=== PATIENT | female | born 1970 | race Caucasian/White ===

== ENCOUNTER 2021-06-08 08:04 | Outpatient (REF) | payer BC, SELFPAY ==
[2021-06-08 11:35] LABS: Appearance Urine HAZY; Color Urine YELLOW; Glucose Urine UA NEG (NEG); Leukocyte Esterase Urine 3+ (NEG); Nitrite Urine NEG (NEG); Urine Blood NEG (NEG); Urine Ketones NEG (NEG); Urine Protein NEG (NEG-TRACE)
[2021-06-08 12:04] LABS: Hematocrit 42.9 % (37.0-47.0); Hemoglobin 14.1 g/dl (12.0-16.0); Mean Corpuscular HGB Conc 32.9 g/dl (31.0-35.0); Mean Corpuscular Volume 91.3 fL (80.0-98.0); Mean Platelet Volume 10.4 fL (9.4-12.3); Platelet Count 204 X10*3/uL (160-400); Red Cell Distribution Width 12.7 % (11.0-16.0); White Blood Count 5.7 X10*3/uL (4.8-10.8)
[2021-06-08 12:11] LABS: Bacteria Urine 3+ /LPF; RBC Urine 0 /HPF (0); Squamous Epithelial Cell Urine 4+ /LPF
[2021-06-08 12:31] LABS: TSH reflex Free T4 2.31 uIU/mL (0.32-4.0); Vitamin D 25-OH Total 38.3 ng/mL (>30)
[2021-06-08 12:34] LABS: Alanine Aminotransferase 28 U/L (0-31); Albumin Level 4.1 g/dL (3.5-5.0); Alkaline Phosphatase 121 U/L (39-117); Anion Gap 14 (12-20); Aspartate Amino Transferase 21 U/L (5-31); Bilirubin Total 0.4 mg/dL (0.0-1.0); Blood Urea Nitrogen 10 mg/dL (9-16); Calcium 9.1 mg/dL (8.4-10.2); Carbon Dioxide 25 mmol/L (22-29); Chloride 106 mmol/L (96-108); Cholesterol 167 mg/dL; Estimated Glomerular Filt Rate > 60; Glucose Fasting 82 mg/dL (60-99); HDL Cholesterol 82 mg/dL; LDL Cholesterol Calculated 74 mg/dl; Potassium 4.6 mmol/L (3.3-5.1); Sodium 140 mmol/L (135-145); Total Protein 6.6 g/dL (6.5-8.0); Triglycerides 57 mg/dL
== END 2021-06-08 08:05 | disposition home or self-care (01) ==
LOC: HO.HMGCLDS 08:04
PROVIDERS: PCP Internal Medicine; Visit Provider Internal Medicine
DX: Z00.00 Encounter for general adult medical examination without abnormal findings (principal)
CPT/HCPCS: 36415; 80053; 80061; 81001; 82306; 84443; 85027

== ENCOUNTER → 2021-08-03 12:49 | Outpatient (REF) | payer BC, SELFPAY ==
--- NOTE | 2021-08-03 12:53 | CA_ITS ---
Transthoracic Echocardiogram Patient (Last, First, Middle): Irma Hobbs A Gender: Female Date of : 1970 Age: 51 Procedure Date: 08/03/2021 Procedure Type: Transthoracic Echocardiogram Location: OP Height: 165.1 cm Weight: 74.84 kg BSA: 1.82 m2 Heart Rate: bpm BP: 130 / 90 mmHg Upscale Security Officer: Referring MD: Brianne Cordoba MD Resource Protection Specialist: Blue Warren MD Symptoms: R01.1 - Cardiac murmur, unspecified Study Quality: Fair ECG Rhythm: Sinus Conclusions: - Essentially normal study with some fibrocalcific aortic valve changes noted Findings Left Ventricle Normal left ventricular size, thickness, and systolic function. The visually estimated ejection fraction is between 60-65%. Spectral Doppler is indicative of a normal filling pattern. Right Ventricle Normal right ventricular cavity size and systolic function. Atria Both atria are normal in size. There is no evidence of interatrial shunt. Aortic Valve The aortic valve was not well visualized. There is mild calcification of the aortic valve. There is no aortic valve stenosis. There is no aortic valve regurgitation. Mitral Valve Normal mitral valve structure and function. There is no mitral valve regurgitation. There is no mitral valve stenosis. Pulmonic Valve The pulmonic valve is likely normal. There is trace pulmonic valve regurgitation. Tricuspid Valve Normal tricuspid valve structure. There is trace tricuspid valve regurgitation. The right ventricular systolic pressure is normal. The right ventricular systolic pressure is 29 mmHg. Normal right atrial pressure. There is no evidence of pulmonary hypertension. Great Vessels All visible segments of the aorta are normal in size. The pulmonary artery was not well visualized. Venous The inferior vena cava is normal in size and collapses greater than 50% with inspiration. Pericardium/Pleural There is no evidence of pericardial effusion. Prior Study Comparison No prior study available for comparison. Measurements 2D Linear Measurements IVSd: 0.91 0.6-0.9/0.6-1.0 cm LVIDd: 4.09 3.9-5.3/4.2-5.9 cm LVIDd Index: 2.25 2.4-3.2/2.2-3.1 cm/m2 LVIDs: 2.65 2.0-3.6 cm LVPWd: 0.84 0.7-1.1 cm Ao Root: 3.10 2.1-3.5 cm LA Diam: 3.30 2.7-3.8/3.0-4.0 cm LAIDs Index: 1.81 1.5-2.3 cm/m2 LV Mass: 135.99 67-162/88-224 g LV Mass Index: 74.72 43-95/49-115 g/m2 LVOT Diam: 1.90 3.0+(-)1.3 cm 2D Systolic Function EF 4C: 61.80 >55% EF 2C: 65.40 >55% EF BiP: 62.60 >55% Mitral Valve E'Lateral: 12.60 E'Medial: 9.36 Aortic Valve AoV Pk Carlos: 1.22 AoV Mn Carlos: 0.90 AoV VTI: 0.30 AoV Pk Grad: 6.00 Aov Mn Grad: 4.00 PRATIBHA Cont.VTI: 2.07 LVOT LVOT Pk Carlos: 0.94 LVOT Mn Carlos: 0.67 LVOT VTI: 0.22 LVOT Pk Grad: 4.00 LVOT Mn Grad: 2.00 LVOT Diam: 1.90 LVOT Area: 2.84 Diastolic Function E'Medial: 9.36 E' Laterial: 12.60 Right Ventricle TAPSE (mm): 25.00 TVS' Carlos: 10.00 Tricuspid Valve TR Pk Carlos: 2.54 TR Pk Grad: 26.00 RA Press: 3.00 RVSP: 29.00 Great Vessels Aorta Ao Root-2D: 3.10 2.0-3.7 cm Ao Asc: 3.00 2.1-3.4 cm Ao Arch: 2.60 Updated in Other Vendor System with Status of Final Blue Warren MD electronically signed on 08/04/2021 12:19:56 PM with status of Final
== END ==
LOC: HO.CARD 12:49
PROVIDERS: PCP Internal Medicine; Visit Provider Internal Medicine
DX: R01.1 Cardiac murmur, unspecified (principal)
CPT/HCPCS: 93306

== ENCOUNTER 2022-05-27 06:58 | Outpatient (REF) | payer BC, SELFPAY ==
[2022-05-27 11:37] LABS: Hematocrit 43.7 % (37.0-47.0); Hemoglobin 14.3 g/dl (12.0-16.0); Mean Corpuscular HGB Conc 32.7 g/dl (31.0-35.0); Mean Corpuscular Volume 91.6 fL (80.0-98.0); Mean Platelet Volume 10.1 fL (9.4-12.3); Platelet Count 208 X10*3/uL (160-400); Red Blood Count 4.77 X10*6/uL (4.20-5.50); Red Cell Distribution Width 12.7 % (11.0-16.0); White Blood Count 4.4 X10*3/uL (4.8-10.8)
[2022-05-27 11:53] LABS: Appearance Urine Clear; Color Urine Yellow; Glucose Urine UA Negative (Negative); Leukocyte Esterase Urine Moderate (2+) (Negative); Nitrite Urine Negative (Negative); Specific Gravity - Urine 1.015 (1.005-1.025); UMIC TRIGGER UA YES; Urine Blood Negative (Negative); Urine Ketones Negative (Negative); Urine Protein Negative (Neg-Trace)
[2022-05-27 12:04] LABS: Alanine Aminotransferase 23 U/L (0-31); Albumin Level 4.4 g/dL (3.5-5.0); Alkaline Phosphatase 133 U/L (39-117); Anion Gap 13 (12-20); Aspartate Amino Transferase 26 U/L (5-31); Bilirubin Total 0.6 mg/dL (0.0-1.0); Blood Urea Nitrogen 16 mg/dL (9-16); Calcium 9.3 mg/dL (8.4-10.2); Carbon Dioxide 26 mmol/L (22-29); Chloride 106 mmol/L (96-108); Cholesterol 208 mg/dL; Estimated Glomerular Filt Rate > 60; Glucose Fasting 81 mg/dL (60-99); HDL Cholesterol 89 mg/dL; LDL Cholesterol Calculated 112 mg/dl; Potassium 4.1 mmol/L (3.3-5.1); Sodium 141 mmol/L (135-145); Total Protein 6.9 g/dL (6.5-8.0); Triglycerides 38 mg/dL
[2022-05-27 12:08] LABS: TSH reflex Free T4 2.57 uIU/mL (0.32-4.0)
[2022-05-27 12:25] LABS: Bacteria Urine 1+ (None Seen); Hyaline Casts Urine 0-2 /LPF (0-2); RBC Urine 0-2 /HPF (0-2); WBC Urine 0-5 /HPF (0-5)
== END 2022-05-27 06:59 | disposition home or self-care (01) ==
LOC: HO.HMGCLDS 06:58
PROVIDERS: PCP Internal Medicine; Visit Provider Internal Medicine
DX: Z00.00 Encounter for general adult medical examination without abnormal findings (principal); E06.3 Autoimmune thyroiditis
CPT/HCPCS: 36415; 80053; 80061; 81001; 84443; 85027

== ENCOUNTER 2022-06-14 11:32 | Outpatient (REF) | payer BC, SELFPAY | END 2022-06-14 11:33 | disposition home or self-care (01) | LOC: HO.HMGCLDS 11:32 | PROVIDERS: PCP Internal Medicine; Visit Provider Internal Medicine | DX: R30.0 Dysuria (principal) | CPT/HCPCS: 87086 ==

== ENCOUNTER 2023-06-02 06:33 | Outpatient (REF) | payer BC, SELFPAY ==
[2023-06-02 11:22] LABS: MANUAL DIFF FLAG NO
[2023-06-02 11:28] LABS: Basophils Absolute Auto 0.1 X10*3/uL (0.0-0.2); Eosinophils Absolute Auto 0.3 X10*3/uL (0.0-0.4); Eosinophils Percent Auto 5.4 % (0-4); Imm Gran Abs Auto 0.02 X10*3/uL (0.00-0.03); Imm Gran Pct Auto 0.3 % (0.0-0.4); Lymphocytes Absolute Auto 2.4 X10*3/uL (1.2-4.9); Lymphocytes Percent Auto 40.1 % (20-40); Mean Corpuscular HGB Conc 32.6 g/dl (31.0-35.0); Mean Corpuscular Hemoglobin 29.5 pg (27.0-33.0); Mean Corpuscular Volume 90.7 fL (80.0-98.0); Mean Platelet Volume 10.4 fL (9.4-12.3); Monocytes Absolute Auto 0.5 X10*3/uL (0.1-1.2); Monocytes Percent Auto 8.2 % (2-11); Neutrophils Absolute Auto 2.7 x10*3/uL (2.0-8.3); Platelet Count 257 X10*3/uL (160-400); Red Blood Count 4.74 X10*6/uL (4.20-5.50); Red Cell Distribution Width 12.8 % (11.0-16.0); White Blood Count 6.1 X10*3/uL (4.8-10.8)
[2023-06-02 11:31] LABS: Appearance Urine Clear; Color Urine Yellow; Glucose Urine UA Negative (Negative); Leukocyte Esterase Urine Trace (Negative); Nitrite Urine Negative (Negative); PH 5.5 (5.0-9.0); UMIC TRIGGER UACC YES; Urine Blood Negative (Negative); Urine Ketones Negative (Negative); Urine Protein Negative (Neg-Trace)
[2023-06-02 11:36] LABS: Bacteria Urine None Seen (None Seen); Hyaline Casts Urine 0-2 /LPF (0-2); RBC Urine 0-2 /HPF (0-2); Squamous Epithelial Cell Urine 0-2 /HPF (0-2); WBC Urine 0-5 /HPF (0-5)
[2023-06-02 12:05] LABS: Alanine Aminotransferase 20 U/L (0-31); Albumin Level 4.1 g/dL (3.5-5.0); Alkaline Phosphatase 117 U/L (39-117); Anion Gap 11 (12-20); Aspartate Amino Transferase 19 U/L (5-31); Bilirubin Total 0.3 mg/dL (0.0-1.0); Blood Urea Nitrogen 17 mg/dL (9-16); Carbon Dioxide 25 mmol/L (22-29); Chloride 109 mmol/L (96-108); Cholesterol 175 mg/dL (<200); Estimated Glomerular Filt Rate > 60; Glucose Fasting 90 mg/dL (60-99); HDL Cholesterol 67 mg/dL (>40); LDL Cholesterol Calculated 96 mg/dL (<100); Sodium 141 mmol/L (135-145); Total Protein 6.7 g/dL (6.5-8.0); Triglycerides 64 mg/dL (<150)
[2023-06-02 12:07] LABS: TSH reflex Free T4 3.66 uIU/mL (0.32-4.0)
== END 2023-06-02 06:34 | disposition home or self-care (01) ==
LOC: HO.HMGCLDS 06:33
PROVIDERS: PCP Internal Medicine; Visit Provider Internal Medicine
DX: Z00.00 Encounter for general adult medical examination without abnormal findings (principal)
CPT/HCPCS: 36415; 80053; 80061; 81001; 84443; 85025

== ENCOUNTER 2023-06-15 11:23 | Outpatient (AMB) | payer BC, SELFPAY ==
[2023-06-15 11:38] VITALS: BP 116/70; PULSE 74; O2SAT 98; BMI 28.1
--- NOTE | 2023-06-15 11:38 | MHC.PC.OV ---
Vital Signs 06/15/23 11:38 Height 5 ft 5.5 in Weight 171 lb 6 oz BMI 28.1 BP 116/70 Blood Pressure Location Rt brachial Position Sitting Pulse 74 Pulse Source Pulse Oximeter Pulse Oximetry (%) 98 Oxygen Delivery Method Room Air Intake Visit Reasons: annual PE Intake Note: pt is here for annual physical exam Supervisor Of Officials Required: No Accompanied by: Self / Same As Patient Allergies No Known Allergies Allergy (Verified 06/15/23 11:38) Medication List - Last Reconciled 06/15/23 by Brianne Cordoba MD No Known Home Meds Tobacco use date assessed: 06/15/23 Dental Screening Dental Screen Date: 06/15/23 Did you have a dental visit in the last 12 months?: Yes Did you have a dental problem in the last 6 months where you did not have access to dental care?: No Was dental information given to patient?: Patient has dentist HPI annual PE HPI Details Pt presents for PE. [facility] Medical History (Updated 06/15/23 @ 12:14 by Brianne Cordoba MD) Heart murmur Normal breast exam Normal pelvic exam Annual physical exam Ta's disease Surgical History H/O colonoscopy Family History Father Heart disease Bone cancer Prostate cancer HTN (hypertension) Mother HTN (hypertension) Diabetes Social History (Updated 06/15/23 @ 12:39 by Brianne Cordoba MD) Household Members Other:: lives with partner, 2 sons(17 and 21) 06/22 Housing: House Patient Tobacco Use Status: Never used Tobacco e-Cigarette/Vaping Use: Never Used Second Hand Smoke Exposure: No Current occupational status: employed Cognitive needs: No Hearing needs: No Vision needs: Yes Questionnaire PHQ-9 Over the last 2 weeks, how often have you been bothered by any of the following problems? 1. Little interest or pleasure in doing things: not at all 2. Feeling down, depressed, or hopeless: not at all 3. Trouble falling or staying asleep, or sleeping too much: not at all 4. Feeling tired or having little energy: not at all 5. Poor appetite or overeating: not at all 6. Feeling bad about yourself - or that you are a failure or have let yourself or your family down: not at all 7. Trouble concentrating on things, such as reading the newspaper or watching television: not at all 8. Moving or speaking so slowly that other people could have noticed. Or the opposite - being so fidgety or restless that you have been moving around a lot more than usual: not at all 9. Thoughts that you would be better off or of hurting yourself in some way: not at all Total score: 0 Depression Screening Interpretation: Negative Depression Screening Done: Yes 13827 - PHQ-9 Billing: Yes Source: Developed by Drs. Milan Hawkins, Melissa Mcallister, Don Lala and colleagues, with an educational su from [employer]. Thrive Questionnaire Date Thrive assessed: 06/15/23 I am a: Patient What is your living situation today?: I have a steady place to live Within the past 12 months, did the food you bought not last and you didn't have the money to get more?: Never true Within the past 12 months, did you worry whether your food would run out before you got money to buy more?: Never true Do you have trouble paying for medicines?: No Do you have trouble getting transportation to medical appointments?: No Do you have trouble paying your heating and electricity bill?: No Do you have trouble taking care of your child, family member or friend?: No Do you have trouble with day-to-day activities such as bathing, preparing meals, shopping, managing finances, etc.?: No Are you currently unemployed and looking for a job?: No Are you interested in more education?: No Please select the resources that you would like help with: None Currently or been in a relationship where the following occur: no concerns reported ANTONIETA-7 AMB Questionnaire ANTONIETA-7 Date ANTONIETA - 7 assessed: 06/15/23 Feeling nervous, anxious, or on edge: 0 = Not at all Not being able to stop or control worryin = Not at all Worrying too much about different things: 0 = Not at all Trouble relaxin = Not at all Being so restless that it is hard to sit still: 0 = Not at all Becoming easily annoyed or irritable: 0 = Not at all Feeling afraid as if something awful might happen: 0 = Not at all Total ANTONIETA-7 score (0-4 normal; 5-9 mild; 10-14 moderate; 15-21 severe): 0 Source: Developed by Drs. Milan Hawkins, Melissa Mcallister, Don Lala and colleagues, with an educational su from [employer]. ANTONIETA-7 Assessment Billing ANTONIETA-7 Assessment Tool: ANTONIETA-7 Assessment 18129 Review of Systems Const All systems reviewed & are unremarkable except as noted in HPI and below Reports no additional complaints Eyes Reports no additional complaints ENT Reports no additional complaints Card Reports no additional complaints Resp Reports no additional complaints GI Reports no additional complaints Reports no additional complaints Physical exam (Primary Care) Vital Signs: Last Vital Signs Pulse 74 06/15/23 11:38 BP 116/70 06/15/23 11:38 Pulse Ox 98 06/15/23 11:38 Oxygen Delivery Method Room Air 06/15/23 11:38 BMI result Body Mass Index 28.1 Tobacco/Smoking Status: Tobacco use Status Tobacco use date assessed 06/15/23 06/15/23 11:39 Patient Tobacco Use Status Never used Tobacco 06/15/23 12:39 e-Cigarette/Vaping Use Never Used 06/15/23 12:39 PHQ-9: PHQ-9 Score PHQ-9: Total score 0 06/15/23 12:14 Depression Screening Interpretation: Negative Thrive Assessment: Date of Thrive Assessment Date Thrive assessed 06/15/23 06/15/23 11:50 Currently or been in a relationship where the following occur: no concerns reported Const General: no acute distress HENMT Ears: hearing grossly normal bilaterally Face and sinus: Yes normal facial exam Mouth: Normal oral and palatal mucosa present Eyes General: appearance normal, both eyes and all related structures Neck Neck: Yes no lymphadenopathy and Yes supple Resp Effort & Inspection: normal respiratory effort Auscultation: clear to auscultation bilaterally Cardio Rhythm: regular rhythm Heart sounds: S1 normal heart sound present and S2 normal heart sound present GI Inspection: Yes normal to inspection Palpation (GI): Soft to palpation Percussion: Yes normal to percussion Auscultation: normal bowel sounds Assessment and Plan Assessment & Plan (1) Normal pelvic exam: Comment: caterer helper 2021, menopause 2022 Code(s): Z01.419 - Encounter for gynecological examination (general) (routine) without abnormal findings (2) H/O colonoscopy: Comment: normal 01/2019 Code(s): Z98.890 - Other specified postprocedural states (3) Annual physical exam: Code(s): Z00.00 - Encounter for general adult medical examination without abnormal findings Plan: Well-balanced diet regular physical activity discussed with the patient . return in 1 year for physical (4) Hx of mammogram: Code(s): Z92.89 - Personal history of other medical treatment Orders: Orders Complete Blood Count Auto Diff 365 Days Z00.00 - Encounter for general adult medical examination without abnormal findings Lipid Panel 365 Days Z00.00 - Encounter for general adult medical examination without abnormal findings Comprehensive [place]. Panel Fast 365 Days Z00.00 - Encounter for general adult medical examination without abnormal findings Vitamin D 25-OH Total 365 Days Z00.00 - Encounter for general adult medical examination without abnormal findings Coding Level of Care Code Est Pt Prev Care 40-64y(22440) Diagnoses Normal pelvic exam Z01.419 H/O colonoscopy Z98.890 Annual physical exam Z00.00 Hx of mammogram Z92.89 Additional Codes ANTONIETA-7 Assessment Billing - ANTONIETA-7 Assessment Tool: ANTONIETA-7 Assessment 15469 ([id number])
== END 2023-06-15 12:40 | disposition home or self-care (01) ==
PROVIDERS: Visit Provider Internal Medicine
DX: Z01.419 Encounter for gynecological examination (general) (routine) without abnormal findings (principal); Z98.890 Other specified postprocedural states; Z00.00 Encounter for general adult medical examination without abnormal findings; Z92.89 Personal history of other medical treatment
CPT/HCPCS: 99396

== ENCOUNTER 2024-07-05 07:07 | Outpatient (REF) | payer BC, SELFPAY ==
[2024-07-05 10:02] LABS: MANUAL DIFF FLAG NO
[2024-07-05 10:03] LABS: Basophils Percent Auto 0.7 % (0-2); Eosinophils Absolute Auto 0.2 X10*3/uL (0.0-0.4); Eosinophils Percent Auto 3.9 % (0-4); Hematocrit 43.7 % (37.0-47.0); Hemoglobin 14.6 g/dl (12.0-16.0); Imm Gran Abs Auto 0.03 X10*3/uL (0.00-0.03); Imm Gran Pct Auto 0.5 % (0.0-0.4); Lymphocytes Absolute Auto 2.1 X10*3/uL (1.2-4.9); Lymphocytes Percent Auto 37.9 % (20-40); Mean Corpuscular HGB Conc 33.4 g/dl (31.0-35.0); Mean Corpuscular Hemoglobin 29.7 pg (27.0-33.0); Mean Platelet Volume 10.1 fL (9.4-12.3); Monocytes Absolute Auto 0.5 X10*3/uL (0.1-1.2); Monocytes Percent Auto 8.7 % (2-11); Neutrophils Absolute Auto 2.7 x10*3/uL (2.0-8.3); Neutrophils Percent Auto 48.3 % (45-73); Platelet Count 219 X10*3/uL (160-400); Red Blood Count 4.91 X10*6/uL (4.20-5.50); Red Cell Distribution Width 12.9 % (11.0-16.0); White Blood Count 5.6 X10*3/uL (4.8-10.8)
[2024-07-05 10:51] LABS: Alanine Aminotransferase 34 U/L (0-31); Albumin Level 4.5 g/dL (3.5-5.0); Alkaline Phosphatase 160 U/L (39-117); Anion Gap 10 (12-20); Aspartate Amino Transferase 27 U/L (5-31); Bilirubin Total 0.4 mg/dL (0.0-1.0); Blood Urea Nitrogen 14 mg/dL (9-16); Carbon Dioxide 29 mmol/L (22-29); Chloride 107 mmol/L (96-108); Cholesterol 220 mg/dL (<200); Estimated Glomerular Filt Rate > 60; Glucose Fasting 84 mg/dL (60-99); HDL Cholesterol 92 mg/dL (>40); LDL Cholesterol Calculated 115 mg/dL (<100); Potassium 3.8 mmol/L (3.3-5.1); Sodium 142 mmol/L (135-145); Total Protein 7.3 g/dL (6.5-8.0); Triglycerides 67 mg/dL (<150)
[2024-07-05 11:07] LABS: Vitamin D 25-OH Total 103.9 ng/mL (>30)
--- OUTSIDE RECORDS SUMMARY | 2024-07-10 04:47 | XMS_ITS | Data Portability ---
Author Organization [facility] Address [address] [place] [phone] Assessment Encounter Date Assessment Date Assessment LastModified by Organization Details LastModified Time 05/29/2018 05/29/2018 Had flu vaccine 04/2018 [email or web address] Not available 05/29/2018 15:37:50 Plan of Treatment Reminders Order Date Submit Date Provider Last Modified By Organization Details Last Modified Time Details Appointments None recorded. Lab TSH + free T4, serum 2017 tbalicki Not available 8 15:39:41 hepatitis C panel, serum 2017 [email or web address] Not available 8 15:39:41 CBC 2017 MARICRUZ Not available 8 08:04:16 CMP, serum or plasma 2017 MARICRUZ Not available 8 08:04:16 Referral colonoscopy referral 2017 MARICRUZ Serrano MD, [address] [place] [address] Dr, [address], [address], 8 12:55:58 Procedures None recorded. Surgeries None recorded. Imaging None recorded. Medication Orders None recorded. Patient TargetsNo targets recorded. Patient Instructions Encounter Date Encounter Id Patient Instructions Last Modified By Organization Details Last Modified Time 05/29/2018 [id number] Continue healthy diet/ exercise [email or web address] Not available 05/29/2018 15:38:02 Shingrix vaccine info provided [email or web address] Not available 05/29/2018 15:38:14 Reason for Referral Colonoscopy Referral for Scr eening procedure Referring Physician: Jane Hatfield, Internal Medicine, Encounter Date: 05/29/2018 Results Created Date Observation Date Name Description Value Unit Range Abnormal Flag Note LastModifiedBy Organization Detail LastModifiedTime Result Notes None recorded. Problems Name Problem SNOMED Code Status Onset Date Resolution Date Notes Provider Name and Address Organization Details Recorded Time Ta thyroiditis 22166181 Active 018 Jane Hatfield NP, [address], [place], [phone], [facility] 8 15:23:23 Problem Notes None recorded. Procedures Surgical History Date Name Laterality Status Provider Name and Address Organization Details Recorded Time 04/30/20 18 Date of Last Pap Smear completed Jane Hatfield NP, [address], [place], [phone], [facility] 05/29/2018 15:07:04 04/30/20 18 Most Recent Mammogram completed Jane Hatfield NP [address], [place], [phone], [facility] 05/29/2018 15:08:23 Incision of eardrum completed Jane Hatfield NP [address], [place], [phone], [facility] 05/29/2018 15:04:56 Tonsillectomy completed Jane Hatfield NP [address] A, [place], [address], [facility] 05/29/2018 15:05:05 Suspension of uterus completed Jane Hatfield NP [address] A, [place], [address], [facility] 05/29/2018 15:06:20 Rhinoplasty completed Jane Hatfield NP, [address] A, [place], [address], [facility] 05/29/2018 15:06:38 Eye Surgery completed Jane Hatfield NP [address], [place], [address], [facility] 05/29/2018 15:15:36 Imaging Results None recorded. Procedure Notes None recorded. Medical Equipment None Reported. Allergies No known drug allergies Medications Name Sig Start Date Stop Date Status Note LastModified by Organization Details LastModified Time intrauterine device (IUD) Take by intrauterin e route. active Not Available Not Available No t Available Vitals Date Recorded Body height Body mass index (BMI) Body weight Heart rate Oxygen saturation Oxygen saturation in Arterial blood by Pulse oximetry Systolic blood pressure Diastolic blood pressure Provider Name and Address Organization Details Last Updated DateTime 8 164.47 cm 26 kg/m2 66094.5 4 g 73 /min 97 % 97 % 100 mm[Hg] 68 mm[Hg] [facility] 8 14:58:09 Social History Question Answer Notes LastModified by Organizat ion Details LastModified Time Tobacco Smoking Status Never [facility]oker [facility] 05/29/2018 14:57:15 What Was The Date Of Your Most Recent Tobacco Screening? 05/29/2018 Information n ot available 02/21/2019 Sex: Unknown Functional Status None recorded. Mental Status None recorded. Family History Relationship Description Onset Age of this Age Resolved Age Notes LastModified by Organization Details LastModified Time Father Coronary arterioscler osis cva, htn, eskawski Not available 05/29/2018 15:03:27 Mother Diabetes mellitus 76 eskawski Not available 2017 15:03:50 Sister Malignant tumor of breast 54 hypoth yroid [email or web address] Not available 05/29/2018 15:04:27 Medical History Condition Response Coronary Artery Disease N Gout N Kidney Stones N Blood Diseases N Hyperthyroidism N Breast Cancer N Blood Transfusion N COPD N Depression N Hypothyroidism N Lung Disease N Defects or Inherited Disease N Difficulty Swallowing N Anesthesia Complications N Anxiety Disorder N Meniere's disease N Muscle, Joint, or Bone Problems N Obesity N Vision or Eye Problems Y Arthritis N Polyps N Mental Disorder N Cancer N Stroke N Varicosities N Endometriosis N Bladder or Kidney Problems N High Cholesterol N Liver Disease N Fibromyalgia N Headaches N Kidney Disease N Allergies/Hayfever Y Heart Problems N Hospitalizations N Thyroid Problems Y GI Problems N Skin Problems N Eating Disorder N Anemia N Constipation N Mental Illness N Ovarian Cancer N Diabetes N Seizures/Epilepsy N Congestive Heart Failure (CHF) N Eczema N Diverticulitis N Abuse/Domestic Violence N Asthma N Reflux/GERD N Hepatitis N Heart Disease N Pulmonary Embolism N Pre-Eclampsia Y Hypertension N Chronic Ear Infections Y Osteoporosis N Chicken Pox Y Autism Spectrum Disorder (ASD) N Gynecological History Statement/Question Response Abnormal Pap N Date of LMP 05/04/2018 On BCP's at Conception? N STIs/STDs Y HPV Vaccine N Duration of Flow (days) 2 Age at Menarche 11 Current Control Method IUD Most Recent Mammogram 04/30/2018 Age at First Child 32 Sexually Active? Y Menses Monthly Y Date of Last Pap Smear 04/30/2018 Sexual Problems? Y LMP Approximate Obstetrics History GPAL:G 3 P 2 0 1 0 Type Value Full Term 2 Spontaneous 1 Total 3 Immunizations Vaccine Type Date Status Note Provider Nam e and Address Organization Details Recorded Time Influenza, split virus, quadrivalent, preservative 8 completed Jane Hatfield NP, [address] [place] [address], [phone] 05/29/2018 15:39:11 Past Encounters Encounter ID Performer Location Encounter Start Date Encounter Closed Date Diagnosis/Indication Diagnosis SNOMED-CT Code Diagnosis ICD10 Code [id number] Jane Hatfield NP, [facility] [address] [place] [address] [place] [phone] 05/29/2018 14:46:53 05/30/2018 12:25:10 Screening procedure 89481440 Z13.9 Ta thyroiditis 21 431747 E06.3 Health Concerns Section Related Observation LastModified by Organization Detai ls LastModified Time None Recorded Concern Status LastModified by Organization Details LastModified Time None Recorded Advance Directives Directive None Recorded Payers Encounter Date Sequence Insurance Name Policy Number Policy Diego Covered Member ID Diego Member ID Guarantor Name 05/29/2018 1 [facility] [id number] Irma Hobbs [id number] Irma Hobbs Notes Date Note Type Note Provider Name and Address Organization Details Recorded Time 05/29/2018 text/html Annual WellnessReported bypatient.Diet and Nutrition:healthy diet; discussed maintaining calcium balance Fracture Risk:no history of fractures; no recent explained fracture; no sudden unexplained fractures; no previous musculoskeletal injuries Physical Activity:exercises on a regular basis; good physical condition; cardio and weights/ [employer] 3-4 X week Additional Lifestyle Factors:no tobacco use; drinks alcohol (mild-moderate) Depression Risk:never feels sad, empty, or tearful; no loss of interest in activities; no significant changes in weight; no sleep disturbances or insomnia; no agitation; no loss of energy; no feelings of worthlessness or guilt; no thoughts of suicide; no history of depression; no history of mood disorders Hearing:no loss of hearing Vision:worse near; cheaters help Jane Hatfield NP, [address] [place] [address], [phone], [facility] 05/29/2018 15:39:30 OBGyn Episode No OBEpisode recorded.
== END 2024-07-05 07:08 | disposition home or self-care (01) ==
LOC: HO.HMGCLDS 07:07
PROVIDERS: PCP Internal Medicine; Visit Provider Internal Medicine
DX: Z00.00 Encounter for general adult medical examination without abnormal findings (principal)
CPT/HCPCS: 36415; 80053; 80061; 82306; 85025

== ENCOUNTER 2024-07-15 11:25 | Outpatient (AMB) | payer BC, SELFPAY ==
--- OUTSIDE RECORDS SUMMARY | 2024-07-15 11:27 | XMS_ITS | Data Portability ---
Author Organization [facility] Address [address] [place] [address] Assessment Encounter Date Assessment Date Assessment LastModified by Organization Details LastModified Time 05/29/2018 05/29/2018 Had flu vaccine 04/2018 kecia Not available 05/29/2018 15:37:50 Plan of Treatment [...] Referral colonoscopy referral 2017 MARICRUZ Serrano MD, [address] [place] [address] Dr, [address], [address], 8 12:55:58 Procedures None recorded. Surgeries None recorded. Imaging None recorded. Medication Orders None recorded. Patient TargetsNo targets recorded. Patient Instructions Encounter Date Encounter Id Patient Instructions Last Modified By Organization Details Last Modified Time 05/29/2018 [id number] Continue healthy diet/ exercise esclaudio Not available 05/29/2018 15:38:02 Shingrix vaccine info provided kecia Not available 05/29/2018 15:38:14 Reason for Referral Colonoscopy Referral for Scr eening procedure Referring Physician: Jane Hatfield [facility], Encounter Date: 05/29/2018 Results Created Date Observation Date Name Description Value Unit Range Abnormal Flag Note LastModifiedBy Organization Detail LastModifiedTime Result Notes None recorded. Problems Name Problem SNOMED Code Status Onset Date Resolution Date Notes Provider Name and Address Organization Details Recorded Time Ta thyroiditis 65490463 Active 2017 Jane Hatfield NP, [address] [place] [address], [phone], [facility] [place] [facility] 8 15:23:23 Problem Notes None recorded. Procedures Surgical History Date Name Laterality Status Provider Name and Address Organization Details Recorded Time 018 Date of Last Pap Smear completed Jane Hatfield NP, [address] [place] [address], [phone], [facility] [place] [facility] 05/29/2018 15:07:04 018 Most Recent Mammogram completed Jane Hatfield NP, [address] [place] [address], [address], [facility] 05/29/2018 15:08:23 Incision of eardrum completed Jane Hatifeld NP, [address] [place] [address], [phone], [facility] [place] [facility] 05/29/2018 15:04:56 Tonsillectomy completed Jane koenig NP, [address] [place] [address], [address], [facility] [place] [facility] 05/29/2018 15:05:05 Suspension of uterus completed Jane Hatfield NP, S [address] [place] [address], [address], [facility] [place] [facility] 05/29/2018 15:06:20 Rhinoplasty completed Jane Lynn i, NP, [address] [place] [address], [address], [facility] [place] [facility] 05/29/2018 15:06:38 Eye Surgery completed Jane Lynn i, NP, [address] [place] [address], [address], [facility] [place] [facility] 05/29/2018 15:15:36 Imaging Results None recorded. [...] Updated DateTime 8 164.47 cm 26 kg/m2 17422.5 4 g 73 /min 97 % 97 % 100 mm[Hg] 68 mm[Hg] Re Mckeonisidra [facility] 8 14:58:09 Social History Question Answer Notes LastModified by Organizat ion Details LastModified Time Tobacco Smoking Status Never Smoker Re Payne quoc [facility] 05/29/2018 14:57:15 What Was The Date Of [...] Malignant tumor of breast 54 hypoth yroid [email or web address] Not available 05/29/2018 15:04:27 Medical History Condition Response Coronary Artery Disease N Gout N Kidney Stones N Blood Diseases N Hyperthyroidism N Blood Transfusion N Breast Cancer N COPD N Depression N Lung Disease N Hypothyroidism N Defects or Inherited Disease N Difficulty Swallowing N Anesthesia Complications N Meniere's disease N Anxiety Disorder N Muscle, Joint, or Bone Problems N Obesity N Vision or Eye Problems Y Arthritis N Polyps N Mental Disorder N Cancer N Varicosities N Stroke N Endometriosis N Bladder or Kidney Problems N High Cholesterol N Liver Disease N Headaches N Fibromyalgia N Kidney Disease N Allergies/Hayfever Y Heart Problems N Hospitalizations N Thyroid Problems Y GI Problems N Eating Disorder N Skin Problems N Anemia N Constipation N Mental Illness N Diabetes N Ovarian Cancer N Seizures/Epilepsy N Congestive Heart Failure (CHF) N Eczema N Abuse/Domestic Violence N Diverticulitis N Asthma N Reflux/GERD N Hepatitis N Heart Disease N Pulmonary Embolism N Chronic Ear Infections Y Pre-Eclampsia Y Hypertension N Chicken Pox Y Autism Spectrum Disorder (ASD) N Osteoporosis N Gynecological History Statement/Question Response Abnormal Pap [...] preservative 8 completed Jane Hatfield NP, S [address] [place] [address], [phone] 05/29/2018 15:39:11 Past Encounters Encounter ID Performer Location Encounter Start Date Encounter Closed Date Diagnosis/Indication Diagnosis SNOMED-CT Code Diagnosis ICD10 Code [id number] Jane Hatfield NP, [facility] [address] [place], [place] [address] [address] 05/29/2018 14:46:53 05/30/2018 12:25:10 Screening procedure 51968748 Z13.9 Ta thyroiditis 21 669816 E06.3 Health Concerns Section Related Observation LastModified by Organization Detai ls LastModified Time None Recorded Concern Status LastModified by Organization Details LastModified Time None Recorded Advance Directives Directive None Recorded Payers Encounter Date Sequence Insurance Name Policy Number Policy Diego Covered Member ID Diego Member ID Guarantor Name 05/29/2018 1 [facility]: [facility] [place] [place] [id number] Irma Hobbs [id number] Irma Hobbs Notes Date Note Type Note Provider Name a nd Address Organization Details Recorded Time 8 text/html Annual WellnessReported bypatient.Diet and Nutrition:healthy diet; [...] near; cheaters help Jane Hatfield NP, [address] [place], [address], [facility] 05/29/2018 15:39:30 OBGyn Episode No OBEpisode recorded.
[2024-07-15 11:31] VITALS: BP 126/82; PULSE 71; O2SAT 97; BMI 29.3
--- NOTE | 2024-07-15 11:31 | MHC.PC.OV ---
Vital Signs 07/15/24 11:31 Height 5 ft 5.5 in Weight 179 lb BMI 29.3 BP 126/82 Blood Pressure Location Lt brachial Position Sitting Pulse 71 Pulse Source Pulse Oximeter Pulse Oximetry (%) 97 Oxygen Delivery Method Room Air Intake Visit Reasons: Annual PE Intake Note: Pt is here today for PE. Allergies No Known Allergies Allergy (Verified 07/15/24 11:34) Medication List - Last Reconciled 07/15/24 by Brianne Cordoba MD No Known Home Meds Tobacco use date assessed: 07/15/24 Dental Screening Dental Screen Date: 07/15/24 Did you have a dental visit in the last 12 months?: Yes Did you have a dental problem in the last 6 months where you did not have access to dental care?: No Was dental information given to patient?: Patient has dentist HPI Annual PE HPI Details Patient presents for physical [facility] Medical History (Updated 07/15/24 @ 11:53 by Brianne Cordoba MD) Heart murmur Normal breast exam Normal pelvic exam Annual physical exam Ta's disease Surgical History H/O colonoscopy Family History Father Heart disease Bone cancer Prostate cancer HTN (hypertension) Mother HTN (hypertension) Diabetes Social History Household Members Other:: lives with partner, 2 sons(17 and 21) 06/22 Housing: House Patient Tobacco Use Status: Never used Tobacco e-Cigarette/Vaping Use: Never Used Second Hand Smoke Exposure: No service: No Current occupational status: employed Cognitive needs: No Hearing needs: No Vision needs: Yes Questionnaire PHQ-9 Over the last 2 weeks, how often have you been bothered by any of the following problems? 1. Little interest or pleasure in doing things: not at all 2. Feeling down, depressed, or hopeless: not at all 3. Trouble falling or staying asleep, or sleeping too much: more than half the days 4. Feeling tired or having little energy: several days 5. Poor appetite or overeating: not at all 6. Feeling bad about yourself - or that you are a failure or have let yourself or your family down: not at all 7. Trouble concentrating on things, such as reading the newspaper or watching television: not at all 8. Moving or speaking so slowly that other people could have noticed. Or the opposite - being so fidgety or restless that you have been moving around a lot more than usual: not at all 9. Thoughts that you would be better off or of hurting yourself in some way: not at all Total score: 3 Depression Screening Interpretation: Negative Depression Screening Done: Yes 12091 - PHQ-9 Billing: Yes Source: Developed by Drs. Milan Hawkins, Melissa Mcallister, Don Lala and colleagues, with an educational su from [employer]. Thrive Questionnaire Date Thrive assessed: 07/15/24 I am a: Patient What is your living situation today?: I have a steady place to live Within the past 12 months, did the food you bought not last and you didn't have the money to get more?: Never true Within the past 12 months, did you worry whether your food would run out before you got money to buy more?: Never true Do you have trouble paying for medicines?: No Do you have trouble getting transportation to medical appointments?: No Do you have trouble paying your heating and electricity bill?: No Do you have trouble taking care of your child, family member or friend?: No Do you have trouble with day-to-day activities such as bathing, preparing meals, shopping, managing finances, etc.?: No Are you currently unemployed and looking for a job?: No Are you interested in more education?: No Please select the resources that you would like help with: None Currently or been in a relationship where the following occur: No concerns reported THRIVE Score: 0 AUDIT C Alcohol Use Questionnaire (AUDIT-C) 1. How often do you have a drink containing alcohol?: 2-4 times a month 2. How many drinks containing alcohol do you have on a typical day when you are drinking?: 1 or 2 3. How often do you have six or more drinks on one occasion?: Monthly Total Score: 4 ANTONIETA-7 AMB Questionnaire ANTONIETA-7 Date ANTONIETA - 7 assessed: 07/15/24 Feeling nervous, anxious, or on edge: 1 = Several days Not being able to stop or control worryin = Not at all Worrying too much about different things: 0 = Not at all Trouble relaxin = Not at all Being so restless that it is hard to sit still: 0 = Not at all Becoming easily annoyed or irritable: 1 = Several days Feeling afraid as if something awful might happen: 0 = Not at all Total ANTONIETA-7 score (0-4 normal; 5-9 mild; 10-14 moderate; 15-21 severe): 2 Source: Developed by Drs. Milan Hawkins, Melissa Mcallister, Don Lala and colleagues, with an educational su from [employer]. ANTONIETA-7 Assessment Billing ANTONIETA-7 Assessment Tool: ANTONIETA-7 Assessment 67681 Review of Systems Const All systems reviewed & are unremarkable except as noted in HPI and below Eyes Reports no additional complaints ENT Reports no additional complaints Card Reports no additional complaints Resp Reports no additional complaints GI Reports no additional complaints Reports no additional complaints Physical exam (Primary Care) Vital Signs: Last Vital Signs Pulse 71 07/15/24 11:31 BP 126/82 07/15/24 11:31 Pulse Ox 97 07/15/24 11:31 Oxygen Delivery Method Room Air 07/15/24 11:31 BMI result Body Mass Index 29.3 Tobacco/Smoking Status: Tobacco use Status Tobacco use date assessed 07/15/24 07/15/24 11:35 Patient Tobacco Use Status Never used Tobacco 07/15/24 11:35 e-Cigarette/Vaping Use Never Used 07/15/24 11:33 PHQ-9: PHQ-9 Score PHQ-9: Total score 3 07/15/24 11:35 Depression Screening Interpretation: Negative Thrive Assessment: Date of Thrive Assessment Date Thrive assessed 07/15/24 07/15/24 11:35 Currently or been in a relationship where the following occur: No concerns reported Const General: no acute distress HENMT Head: Yes normal to inspection Ears: hearing grossly normal bilaterally Eyes General: appearance normal, both eyes and all related structures Neck Neck: Yes no lymphadenopathy and Yes supple Resp Effort & Inspection: normal respiratory effort Auscultation: clear to auscultation bilaterally Cardio Rhythm: regular rhythm Heart sounds: S1 normal heart sound present and S2 normal heart sound present GI Inspection: Yes normal to inspection Palpation (GI): Soft to palpation Percussion: Yes normal to percussion Auscultation: normal bowel sounds Coding Level of Care Code Est Pt Prev Care 40-64y(14277) Diagnoses Elevated LFTs Annual physical exam Z00. Additional Codes ANTONIETA-7 Assessment Billing - ANTONIETA-7 Assessment Tool: ANTONIETA-7 Assessment 52351 ([id number]) PHQ-9 - 25462 - PHQ-9 Billing: Yes ([id number]) Assessment & Plan Assessment & Plan (1) Elevated LFTs: Code(s): - Other specified abnormal findings of blood chemistry Category: Medical Plan: Patient was advised to cut down on alcohol and simple carbohydrates intake. Obtain liver ultrasound repeat LFTs hepatitis-B and C panel in 6 weeks (2) Annual physical exam: Code(s): Z.00 - Encounter for general adult medical examination without abnormal findings Category: Medical Plan: Well-balanced diet regular physical activity weight loss discussed with the patient. 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 Panel Fast 1 Year - Other specified abnormal findings of blood chemistry, Z00.00 - Encounter for general adult medical examination without abnormal findings Vitamin D 25-OH Total 1 Year - Other specified abnormal findings of blood chemistry, Z00.00 - Encounter for general adult medical examination without abnormal findings US abdomen complete Today - Other specified abnormal findings of blood chemistry Hepatitis B,C Profile 6 Weeks - Other specified abnormal findings of blood chemistry Complete Blood Count Auto Diff 1 Year - Other specified abnormal findings of blood chemistry, Z00.00 - Encounter for general adult medical examination without abnormal findings Lipid Panel 1 Year - Other specified abnormal findings of blood chemistry, Z00.00 - Encounter for general adult medical examination without abnormal findings TSH reflex Free T4 1 Year - Other specified abnormal findings of blood chemistry, Z00.00 - Encounter for general adult medical examination without abnormal findings
== END 2024-07-15 12:18 | disposition home or self-care (01) ==
PROVIDERS: PCP Internal Medicine; Visit Provider Internal Medicine
DX: R79.89 Other specified abnormal findings of blood chemistry (principal); Z00.00 Encounter for general adult medical examination without abnormal findings

== ENCOUNTER → 2024-07-15 11:25 | Outpatient (BNVA) | payer BC, SELFPAY | PROVIDERS: PCP Internal Medicine; Visit Provider Internal Medicine | DX: Z00.00 Encounter for general adult medical examination without abnormal findings (principal); R79.89 Other specified abnormal findings of blood chemistry | CPT/HCPCS: 96127 ==

== ENCOUNTER 2024-07-29 08:22 | Outpatient (REF) | payer BC, SELFPAY ==
--- NOTE | ~2024-07-29 | US_ITS ---
EXAMINATION: US ABDOMEN COMPLETE CLINICAL INFORMATION: Other specified abnormal findings of blood chemistry. COMPARISON: None available. TECHNIQUE: Real-time imaging of the abdominal viscera using grayscale and color Doppler technique. FINDINGS: Submitted for interpretation on August 06, 2024. PANCREAS: No peripancreatic fluid collections. ABDOMINAL AORTA: The proximal, mid, and distal segments are normal in caliber. INFERIOR VENA CAVA: Visualized portions are normal. LIVER: Liver measures 16 cm. The liver contour is normal. Parenchymal echogenicity is normal. No solid or cystic lesion. No intrahepatic biliary ductal dilatation. GALLBLADDER: Fluid-filled without pericholecystic fluid collection or gallbladder wall thickening. COMMON BILE DUCT: 2 mm in diameter. RIGHT KIDNEY: 11 cm. Normal echotexture. Renal cortex thickness is normal. No solid or cystic lesion. No hydronephrosis. Normal flow on color Doppler interrogation in the renal hilum. LEFT KIDNEY: 10 cm. Normal echotexture. Renal cortex thickness is normal. No solid or cystic lesion. No hydronephrosis. Normal flow on color Doppler interrogation and renal hilum SPLEEN: 11 cm. No solid or cystic lesion.. FREE FLUID: None. US/US abdomen complete IMPRESSION: No cholelithiasis. No hydronephrosis. No ascites. Electronically signed by: Michael Wilkinson MD 08/06/2024 07:26 AM EST
--- OUTSIDE RECORDS SUMMARY | 2024-07-29 08:26 | XMS_ITS | Continuity of Care Document ---
Author Organization [facility] Address [address] [facility], [address] [place] [address]- Care Team Providers Care Cycle Specialist Name Role Phone Brianne Cordoba MD Primary Care Physician [phone] Encounter 07/09/24 - 07/16/24 [facility] [address], [address] [place] [address]- [place] Attending Physician: Freddie Hall MD Admitting Physician: Freddie Hall MD Referring Physician: Freddei Hall MD Encounter Type: OutPatient One Time Allergies, Adverse Reactions, Alerts No Known Allergies Medications 08/19 oral tablet 1 tablet, By Mouth, Daily, 0 Refills, Maintenance, 10/17/15 10:24:44 AM EDT Start Date: 10/17/15 Status: Ordered Repeat number: 1 Results Radiology Reports * Exam Date Time Procedure Performing Provider Status 07/09/24 8:52 AM MM Digital Mammo Screening Shen Rodriguez; Auth (Verified) Notes: (MM Digital Mammo Screening) Reason For Exam: Z12.31 SCREENING RESULT: MM Digital Mammo Screening PROCEDURE: MM Digital Mammo Screening INDICATION: Screening for breast cancer. No known palpable abnormalities. Family history of breast cancer sister at the age of 52 COMPARISON: Priors, most recent dated 07/06/2023 TECHNIQUE: Full-field digital CC and MLO 3D tomosynthesis images of both breasts were acquired. Computer-aided detection (CAD) was utilized in the interpretation of this study. DENSITY: The breast tissue is heterogeneously dense, which may obscure small masses. FINDINGS: There is a 6 mm oval mass at approximately 6:00 region of the right breast, at a middle depth, 5 cm from the nipple, just below the nipple line. Further evaluation with targeted ultrasound recommended. No suspicious findings are seen in the left breast. IMPRESSION: Additional imaging recommended. We will recall the patient. RECOMMENDATION: Right breast ultrasound BI-RADS: 0 (Incomplete - Need Additional Imaging Evaluation. Lay letter mailed to patient WSN: [id number] Ordering Physician: Freddie Hall MD Dictated By: Vivien Chase MD Dictated Date/Time: 07/09/24 11:48 am Reviewed By: Vivien Chase MD Signed By: Vivien Chase MD Signed Date/Time: 07/09/24 11:48 am Transcribed By: TESSA Bulk Cooler Installer Date/Time: 07/09/24 11:35 am Birads: Patient Care team information Care Team Personnel Name: Brianne Cordoba MD Position: [facility] Physician - Primary Care Member Role: PCP Address: [address] [place] [address] Telecom: Care Team Related Persons Name: NEELAM ROMERO Insurance Providers Guarantor name: ALTON JEOVANNY Health Plan Information #: 1 Payer: [employer] Member Number: [id number] Policy Number: NA Group Number: [id number] Health Plan Information #: 2 Payer: [employer] Member Number: [id number] Policy Number: NA Group Number: [id number]
--- OUTSIDE RECORDS SUMMARY | 2024-07-29 08:26 | XMS_ITS | Data Portability ---
Author Organization [facility] Address [address] [place] [address] Assessment Encounter Date Assessment Date Assessment LastModified [...] Referral colonoscopy referral 2017 MARICRUZ Serrano MD, [address] [place] [address] Dr, [address], [address], 8 12:55:58 Procedures None recorded. Surgeries None recorded. Imaging None recorded. Medication Orders None recorded. Patient TargetsNo targets recorded. Patient Instructions Encounter Date Encounter Id Patient Instructions Last Modified By Organization Details Last Modified Time 05/29/2018 [id number] Continue healthy diet/ exercise esclaudio Not available [...] Address Organization Details Recorded Time Ta thyroiditis 33104263 Active 2017 Jane Hatfield NP, [address] [place] [address], [address], [facility] 8 15:23:23 Problem Notes None recorded. Procedures Surgical History Date Name Laterality Status Provider Name and Address Organization Details Recorded Time 018 Date of Last Pap Smear completed Jane Hatfield NP, [address] [place] [address], [phone], [facility] Internal [facility] 05/29/2018 15:07:04 018 Most Recent Mammogram completed Jane Hatfield NP, [address] [place] [address], [address], [facility] 05/29/2018 15:08:23 Incision of eardrum completed Jane Hatfield NP, [address] [place] [address], [address], [facility] 05/29/2018 15:04:56 Tonsillectomy completed Jane koenig NP, [address] [place] [address], [address], [facility] 05/29/2018 15:05:05 Suspension of uterus completed Jane Hatfield NP, [address] [place] [address], [address], [facility] 05/29/2018 15:06:20 Rhinoplasty completed Jane Lynn i, NP, [address] [place] [address], [address], [facility] 05/29/2018 15:06:38 Eye Surgery completed Jane Lynn i, NP, [address] [place] [address], [address], [facility] 05/29/2018 15:15:36 Imaging Results None [...] Updated DateTime 8 164.47 cm 26 kg/m2 50974.5 4 g 73 /min 97 % 97 % 100 mm[Hg] 68 mm[Hg] Re Mckeonisidra [facility] 8 14:58:09 Social History Question Answer Notes LastModified by Organizat ion Details LastModified Time Tobacco Smoking Status Never Smoker Re Payne quoc [facility] 05/29/2018 14:57:15 What Was [...] N Blood Transfusion N Breast Cancer N Hypothyroidism N Lung Disease N Depression N COPD N Defects or Inherited Disease N Difficulty [...] 8 completed Jane Hatfield NP, [address] [place] [address], [phone] 05/29/2018 15:39:11 Past Encounters Encounter ID Performer Location Encounter Start Date Encounter Closed Date Diagnosis/Indication Diagnosis SNOMED-CT Code Diagnosis ICD10 Code [id number] Jane Hatfield NP, [facility] [address] [place], [place] [address] [address] 05/29/2018 14:46:53 05/30/2018 12:25:10 Screening procedure 76771408 Z13.9 Ta thyroiditis 21 542524 E06.3 Health Concerns Section Related Observation LastModified by Organization Detai ls LastModified Time None Recorded Concern Status LastModified by Organization Details LastModified Time None Recorded Advance Directives Directive None Recorded Payers Encounter Date Sequence Insurance Name Policy Number Policy Diego Covered Member ID Diego Member ID Guarantor Name 05/29/2018 1 [facility]: [facility] [place] [place] [id number] Irma Hobbs [id number] Irma Hobbs Notes Date Note Type [...] cheaters help Jane Hatfield NP, [address] [place], [address], [facility] 05/29/2018 15:39:30 OBGyn Episode No OBEpisode recorded.
== END 2024-07-29 08:23 | disposition home or self-care (01) ==
LOC: HO.HMGCX 08:22
PROVIDERS: PCP Internal Medicine; Visit Provider Internal Medicine
DX: R79.89 Other specified abnormal findings of blood chemistry (principal)
CPT/HCPCS: 76700

== ENCOUNTER → 2024-07-29 08:24 | Outpatient (BNV) | payer BC, SELFPAY | PROVIDERS: PCP Internal Medicine; Visit Provider Radiology Diagnostic Radiology | DX: R79.9 Abnormal finding of blood chemistry, unspecified (principal) | CPT/HCPCS: 76700 ==

== ENCOUNTER 2024-08-14 06:44 | Outpatient (REF) | payer BC, SELFPAY ==
[2024-08-14 10:16] LABS: Alanine Aminotransferase 24 U/L (0-31); Albumin Level 4.4 g/dL (3.5-5.0); Aspartate Amino Transferase 27 U/L (5-31); Bilirubin Direct 0.1 mg/dL (0.0-0.5); Bilirubin Total 0.4 mg/dL (0.0-1.0); Cholesterol 195 mg/dL (<200); HDL Cholesterol 83 mg/dL (>40); LDL Cholesterol Calculated 98 mg/dL (<100); Total Protein 7.4 g/dL (6.5-8.0); Triglycerides 73 mg/dL (<150)
[2024-08-14 10:33] LABS: Alkaline Phosphatase 163 U/L (39-117)
[2024-08-14 10:36] LABS: ~Hepatitis B Surface Antibody NONREACTIVE (Nonreactive)
[2024-08-14 10:56] LABS: HBc Num1 0.09 S/CO (0.00-0.79); HBsAGNum1 0.32 S/CO (0.00-0.99); Hepatitis B Core Antibody Nonreactive (Nonreactive); Hepatitis B Surface Antigen Negative (Negative); ~HepC Num1 0.07 S/CO (0.00-0.79); ~Hepatitis C Antibody Nonreactive (Nonreactive)
== END 2024-08-14 06:45 | disposition home or self-care (01) ==
LOC: HO.HMGCLDS 06:44
PROVIDERS: PCP Internal Medicine; Visit Provider Internal Medicine
DX: R79.89 Other specified abnormal findings of blood chemistry (principal)
CPT/HCPCS: 36415; 80061; 80076; 84443; 86704; 86706; 86803; 87340

== ENCOUNTER 2024-10-22 11:43 | Outpatient (AMB) | payer BC, SELFPAY ==
[2024-10-22 11:45] VITALS: BP 124/86; PULSE 87; RESP 18; TEMP 36.8; O2SAT 97; BMI 30.2
--- NOTE | 2024-10-22 11:45 | A.OFFPC_ITS ---
Vital Signs 10/22/24 11:45 Height 5 ft 5.5 in Weight 184 lb BMI 30.2 BP 124/86 Blood Pressure Location Lt brachial Position Sitting Respiration 18 Pulse 87 Pulse Source Pulse Oximeter Temp 98.2 F Temp Source Oral Pulse Oximetry (%) 97 Oxygen Delivery Method Room Air Intake Visit Reasons: Problems with acid and reflux Intake Note: Pt is here today for a sick visit. Pt c/o problem with acid reflux. Allergies No Known Allergies Allergy (Verified 10/22/24 11:54) Medication List - Last Reconciled 10/22/24 by Brianne Cordoba MD omeprazole 20 mg PO DAILY Tobacco use date assessed: 10/22/24 Dental Screening Dental Screen Date: 10/22/24 Did you have a dental visit in the last 12 months?: Yes Did you have a dental problem in the last 6 months where you did not have access to dental care?: No Was dental information given to patient?: Patient has dentist HPI Problems with acid and reflux HPI Details Pt presents c/o increased episodes of heartburn since June usually after eating but also at night. Pt denies odynophagia, dysphagia. She had episode of right upper quadrant abdominal pain and increased gas, with some nausea but no vomiting a week ago after eating fried foods. Patient denies fever chills hematochezia melena. [facility] Medical History Heart murmur Normal breast exam Normal pelvic exam Annual physical exam Ta's disease Surgical History H/O colonoscopy Family History Father Heart disease Bone cancer Prostate cancer HTN (hypertension) Mother HTN (hypertension) Diabetes Social History Household Members Other:: lives with partner, 2 sons(17 and 21) 06/22 Housing: House Patient Tobacco Use Status: Never used Tobacco e-Cigarette/Vaping Use: Never Used Second Hand Smoke Exposure: No service: No Current occupational status: employed Cognitive needs: No Hearing needs: No Vision needs: Yes Questionnaire PHQ-9 Over the last 2 weeks, how often have you been bothered by any of the following problems? 1. Little interest or pleasure in doing things: not at all 2. Feeling down, depressed, or hopeless: not at all 3. Trouble falling or staying asleep, or sleeping too much: not at all 4. Feeling tired or having little energy: not at all 5. Poor appetite or overeating: not at all 6. Feeling bad about yourself - or that you are a failure or have let yourself or your family down: not at all 7. Trouble concentrating on things, such as reading the newspaper or watching television: not at all 8. Moving or speaking so slowly that other people could have noticed. Or the opposite - being so fidgety or restless that you have been moving around a lot more than usual: not at all 9. Thoughts that you would be better off or of hurting yourself in some way: not at all Total score: 0 Depression Screening Interpretation: Negative Depression Screening Done: Yes 64306 - PHQ-9 Billing: Yes Source: Developed by Drs. [place] Hawkins, Melissa Mcallister, Don Lala and colleagues, with an educational su from [employer]. Thrive Questionnaire Date Thrive assessed: 10/22/24 I am a: Patient What is your living situation today?: I have a steady place to live Within the past 12 months, did the food you bought not last and you didn't have the money to get more?: Never true Within the past 12 months, did you worry whether your food would run out before you got money to buy more?: Never true Do you have trouble paying for medicines?: No Do you have trouble getting transportation to medical appointments?: No Do you have trouble paying your heating and electricity bill?: No Do you have trouble taking care of your child, family member or friend?: No Do you have trouble with day-to-day activities such as bathing, preparing meals, shopping, managing finances, etc.?: No Are you currently unemployed and looking for a job?: No Are you interested in more education?: No Please select the resources that you would like help with: None Currently or been in a relationship where the following occur: No concerns reported THRIVE Score: 0 AUDIT C Alcohol Use Questionnaire (AUDIT-C) 1. How often do you have a drink containing alcohol?: 2-4 times a month 2. How many drinks containing alcohol do you have on a typical day when you are drinking?: 1 or 2 3. How often do you have six or more drinks on one occasion?: Less than monthly Total Score: 3 ANTONIETA-7 AMB Questionnaire ANTONIETA-7 Date ANTONIETA - 7 assessed: 10/22/24 Feeling nervous, anxious, or on edge: 0 = Not at all Not being able to stop or control worryin = Not at all Worrying too much about different things: 0 = Not at all Trouble relaxin = Not at all Being so restless that it is hard to sit still: 0 = Not at all Becoming easily annoyed or irritable: 0 = Not at all Feeling afraid as if something awful might happen: 0 = Not at all Total ANTONIETA-7 score (0-4 normal; 5-9 mild; 10-14 moderate; 15-21 severe): 0 Source: Developed by Drs. [place] Hawkins, Melissa Mcallister, Don Lala and colleagues, with an educational su from [employer]. ANTONIETA-7 Assessment Billing ANTONIETA-7 Assessment Tool: ANTONIETA-7 Assessment 17415 Review of Systems Const All systems reviewed & are unremarkable except as noted in HPI and below Eyes Reports no additional complaints ENT Reports no additional complaints Card Reports no additional complaints Resp Reports no additional complaints GI Reports no additional complaints Physical exam (Primary Care) Vital Signs: Last Vital Signs Temp 98.2 F 10/22/24 11:45 Pulse 87 10/22/24 11:45 Resp 18 10/22/24 11:45 BP 124/86 10/22/24 11:45 Pulse Ox 97 10/22/24 11:45 Oxygen Delivery Method Room Air 10/22/24 11:45 BMI result Body Mass Index 30.2 Tobacco/Smoking Status: Tobacco use Status Tobacco use date assessed 10/22/24 10/22/24 11:55 Patient Tobacco Use Status Never used Tobacco 10/22/24 11:55 e-Cigarette/Vaping Use Never Used 10/22/24 11:45 PHQ-9: PHQ-9 Score PHQ-9: Total score 0 10/22/24 11:55 Depression Screening Interpretation: Negative Thrive Assessment: Date of Thrive Assessment Date Thrive assessed 10/22/24 10/22/24 11:55 Currently or been in a relationship where the following occur: No concerns reported Const General: no acute distress HENMT Head: Yes normal to inspection Neck Neck: Yes supple Resp Effort & Inspection: normal respiratory effort Auscultation: clear to auscultation bilaterally Cardio Rhythm: regular rhythm Heart sounds: S1 normal heart sound present and S2 normal heart sound present GI Inspection: Yes normal to inspection Palpation (GI): Soft to palpation Percussion: Yes normal to percussion Auscultation: normal bowel sounds Coding Level of Care Code Est Pt Level 3 (42621) Diagnoses Elevated LFTs R79.89 GERD (gastroesophageal reflux disease) K21.9 Additional Codes ANTONIETA-7 Assessment Billing - ANTONIETA-7 Assessment Tool: ANTONIETA-7 Assessment 64166 ([id number]) PHQ-9 - 38005 - PHQ-9 Billing: Yes ([id number]) Assessment & Plan Assessment & Plan (1) Elevated LFTs: Code(s): R79.89 - Other specified abnormal findings of blood chemistry Category: Medical Plan: Obtain liver ultrasound to rule out gallstones (2) GERD (gastroesophageal reflux disease): Code(s): K21.9 - Gastro-esophageal reflux disease without esophagitis Category: Medical Plan: Anti GERD diet discussed with the patient. Omeprazole 20 mg daily will be tried for 6 weeks patient will follow-up in 2 months Orders: Orders US abdomen limited Today R10.9 - Unspecified abdominal pain, R79.89 - Other specified abnormal findings of blood chemistry Medications: New omeprazole 20 mg PO DAILY 45 tabs 0RF omeprazole 20 mg PO DAILY 90 tabs 0RF
--- OUTSIDE RECORDS SUMMARY | 2024-10-22 14:32 | XMS_ITS | Data Portability ---
Author Organization [facility] Address [address] [place] [address] Assessment Encounter Date Assessment Date Assessment LastModified [...] Referral colonoscopy referral 2017 MARICRUZ Serrano MD, [address] [place] [address] Dr, [address], [address], 8 12:55:58 Procedures None recorded. Surgeries None recorded. Imaging None recorded. Medication Orders None recorded. Patient TargetsNo targets recorded. Patient Instructions Encounter Date Encounter Id Patient Instructions Last Modified By Organization Details Last Modified Time 05/29/2018 [id number] Continue healthy diet/ exercise esclaudio Not available [...] Address Organization Details Recorded Time Ta thyroiditis 40663041 Active 2017 Jane Hatfield NP, S [address] [place] [address], [phone], [facility] Internal Medicine 8 15:23:23 Problem Notes None recorded. Procedures Surgical History Date Name Laterality Status Provider Name and Address Organization Details Recorded Time 018 Date of Last Pap Smear completed Jane Hatfield NP, S [address] [place] [address], [phone], [facility] Internal [facility] 05/29/2018 15:07:04 018 Most Recent Mammogram completed Jane Hatfield NP, S [address] [place] [address], [phone], [facility] 05/29/2018 15:08:23 Incision of eardrum completed Jane Hatfield NP, S [address] [place] [address], [phone], [facility] Internal [facility] 05/29/2018 15:04:56 Tonsillectomy completed Jane koenig NP, S [address] [place] [address], [phone], [facility] Internal [facility] 05/29/2018 15:05:05 Suspension of uterus completed Jane Hatfield NP, S [address] [place] [address], [phone], [facility] Internal [facility] 05/29/2018 15:06:20 Rhinoplasty completed Jane Lynn i, NP, S [address] [place] [address], [phone], [facility] Internal [facility] 05/29/2018 15:06:38 Eye Surgery completed Jane Lynn i, NP, S [address] [place] [address], [phone], [facility] 05/29/2018 15:15:36 Imaging [...] Updated DateTime 8 164.47 cm 26 kg/m2 41526.5 4 g 73 /min 97 % 97 % 100 mm[Hg] 68 mm[Hg] Re Mckeonisidra [facility] Internal Medicine 8 14:58:09 Social History Question Answer Notes LastModified by Organizat ion Details LastModified Time Tobacco Smoking Status Never Smoker Re Payne quoc [facility] Internal Medicine 05/29/2018 14:57:15 What Was [...] 8 completed Jane Hatfield NP, S [address] [place] [address], [phone], [facility] Internal Medicine 05/29/2018 15:39:11 Past Encounters Encounter ID Performer Location Encounter Start Date Encounter Closed Date Diagnosis/Indication Diagnosis SNOMED-CT Code Diagnosis ICD10 Code Diagnosis Note [id number] Jane Hatfield NP, S [facility] Internal Medicine [address] [place] [address],[place] [address] 05/29/2018 14:46:53 05/30/2018 12:25:10 Screening procedure 34579512 Z13.9 Ta thyroiditis 21 027422 E06.3 Health Concerns Section Related Observation LastModified by Organization Detai ls LastModified Time None Recorded Concern Status LastModified by Organization Details LastModified Time None Recorded Advance Directives Directive None Recorded Payers Encounter Date Sequence Insurance Name Policy Number Policy Diego Covered Member ID Diego Member ID Guarantor Name 05/29/2018 1 [facility] [place] [id number] Irma Hobbs [id number] Irma Hobbs Notes Date Note Type [...] cheaters help Jane Hatfield NP, S [address] [place], [address], [facility] 05/29/2018 15:39:30 OBGyn Episode No OBEpisode recorded.
== END 2024-10-22 12:44 | disposition home or self-care (01) ==
LOC: HO.HMCC 11:44
PROVIDERS: PCP Internal Medicine; Visit Provider Internal Medicine
DX: R79.89 Other specified abnormal findings of blood chemistry (principal); K21.9 Gastro-esophageal reflux disease without esophagitis

== ENCOUNTER → 2024-10-22 11:43 | Outpatient (BNVA) | payer BC, SELFPAY | PROVIDERS: PCP Internal Medicine; Visit Provider Internal Medicine | DX: R79.89 Other specified abnormal findings of blood chemistry (principal); K21.9 Gastro-esophageal reflux disease without esophagitis | CPT/HCPCS: 96127 ==

== ENCOUNTER 2024-11-11 10:03 | Outpatient (REF) | payer BC, SELFPAY ==
--- NOTE | ~2024-11-11 | US_ITS ---
CLINICAL HISTORY: R10.9 - Unspecified abdominal pain --- Additional Notes or Special Instructions: r o gallstones US abdomen limited Comparison: None Findings: The visualized pancreas is normal. The visualized IVC is unremarkable. The liver is normal in size and echotexture. There is no intrahepatic bile duct dilatation. The common duct is 3 mm in diameter. The gallbladder is normal. There is no sonographic Holden sign. The main portal vein is antegrade. The right kidney is 10.3 cm in length. No ascites. IMPRESSION: Unremarkable limited abdominal ultrasound. This document has been electronically signed by: Tatiana Fair MD on 11/11/2024 15:21:50
--- OUTSIDE RECORDS SUMMARY | 2024-11-11 11:21 | XMS_ITS | Data Portability ---
Author Organization [facility] Address [address] [place] [address] Assessment Encounter Date Assessment Date Assessment LastModified [...] Referral colonoscopy referral 2017 MARICRUZ Serrano MD, [address] [place] [address] Dr, [address], [address], 8 12:55:58 Procedures None recorded. Surgeries None recorded. Imaging None recorded. Medication Orders None recorded. Patient TargetsNo targets recorded. Patient Instructions Encounter Date Encounter Id Patient Instructions Last Modified By Organization Details Last Modified Time 05/29/2018 [id number] Continue healthy diet/ exercise esclaudio Not available [...] Address Organization Details Recorded Time Ta thyroiditis [id number] Active 2017 Jane Hatfield NP, S [address] [place] [address], [phone], [facility] Internal Medicine 8 15:23:23 Problem Notes None recorded. Procedures Surgical History Date Name Laterality Status Provider Name and Address Organization Details Recorded Time 018 Date of Last Pap Smear completed Jane Hatfield NP, S [address] [place] [address], [phone], [facility] Internal [facility] 05/29/2018 15:07:04 018 Most Recent Mammogram completed Jane Hatfield NP, S [address] [place] [address], [phone], [facility] 05/29/2018 15:08:23 Incision of eardrum completed Jane Hatfield NP, S [address] [place] [address], [phone], [facility] Internal [facility] 05/29/2018 15:04:56 Tonsillectomy completed Jane koenig NP, S [address] [place] [address], [phone], [facility] Internal [facility] 05/29/2018 15:05:05 Suspension of uterus completed Jane Hatfield NP, S [address] [place] [address], [phone], [facility] Internal [facility] 05/29/2018 15:06:20 Rhinoplasty completed Jane Lynn i, NP, S [address] [place] [address], [phone], [facility] Internal [facility] 05/29/2018 15:06:38 Eye Surgery completed Jane Lynn i, NP, S [address] [place] [address], [phone], [facility] 05/29/2018 15:15:36 Imaging Results None [...] Updated DateTime 8 164.47 cm 26 kg/m2 35861.5 4 g 73 /min 97 % 97 % 100 mm[Hg] 68 mm[Hg] Re Mckeonisidra [facility] Internal Medicine 8 14:58:09 Social History Question Answer Notes LastModified by Organizat ion Details LastModified Time Tobacco Smoking Status Never Smoker Re Payne quoc [facility] Internal Medicine 05/29/2018 14:57:15 What Was [...] Diseases N Hyperthyroidism N Blood Transfusion N COPD N Depression N Anxiety Disorder N Muscle, Joint, or Bone Problems N Obesity N Vision or Eye Problems Y Arthritis N Polyps N Mental Disorder N Cancer N Varicosities N Stroke N Headaches N Fibromyalgia N Kidney Disease N Heart Problems N Hospitalizations N Eating Disorder N Skin Problems N Constipation N Asthma N Hepatitis N Pulmonary Embolism N Chronic Ear Infections Y Chicken Pox Y Autism Spectrum Disorder (ASD) N Breast Cancer N Lung Disease N Hypothyroidism N Defects or Inherited Disease N Difficulty Swallowing N Anesthesia Complications N Meniere's disease N Endometriosis N Bladder or Kidney Problems N High Cholesterol N Liver Disease N Allergies/Hayfever Y Thyroid Problems Y GI Problems N Anemia N Mental Illness N Diabetes N Ovarian Cancer N Seizures/Epilepsy N Congestive Heart Failure (CHF) N Eczema N Abuse/Domestic Violence N Diverticulitis N Reflux/GERD N Heart Disease N Pre-Eclampsia Y Hypertension N Osteoporosis N Gynecological History Statement/Question Response [...] preservative 8 completed Jane Hatfield NP, S [address] [place] [address], [phone], [facility] 05/29/2018 15:39:11 Past Encounters Encounter ID Performer Location Encounter Start Date Encounter Closed Date Diagnosis/Indication Diagnosis SNOMED-CT Code Diagnosis ICD10 Code Diagnosis Note [id number] Jane Hatfield NP, S [facility] Internal Medicine [address] [place] [address],[place] [address] 05/29/2018 14:46:53 05/30/2018 12:25:10 Screening procedure 08039989 Z13.9 Ta thyroiditis 21 897942 E06.3 Health Concerns Section Related Observation LastModified by Organization Detai ls LastModified Time None Recorded Concern Status LastModified by Organization Details LastModified Time None Recorded Advance Directives Directive None Recorded Payers Encounter Date Sequence Insurance Name Policy Number Policy Diego Covered Member ID Diego Member ID Guarantor Name 05/29/2018 1 [facility] [id number] Irma Hobbs [id number] Iram Hobbs Notes Date Note Type Note Provider [...] cheaters help Jane Hatfield NP, [address] [place], [address], [facility] 05/29/2018 15:39:30 OBGyn Episode No OBEpisode recorded.
== END 2024-11-11 10:04 | disposition home or self-care (01) ==
LOC: HO.HMGCX 10:03
PROVIDERS: PCP Internal Medicine; Visit Provider Internal Medicine
DX: R10.9 Unspecified abdominal pain (principal); R79.89 Other specified abnormal findings of blood chemistry
CPT/HCPCS: 76705

== ENCOUNTER → 2024-11-11 10:06 | Outpatient (BNV) | payer BC, SELFPAY | PROVIDERS: PCP Internal Medicine; Visit Provider Radiology Diagnostic Radiology | DX: R10.9 Unspecified abdominal pain (principal) | CPT/HCPCS: 76705 ==

== ENCOUNTER 2024-12-20 11:48 | Outpatient (AMB) | payer BC, SELFPAY ==
--- OUTSIDE RECORDS SUMMARY | 2024-12-20 11:50 | XMS_ITS | Data Portability ---
Author Organization [facility] Address [address] [place] [address] Assessment Encounter Date Assessment Date Assessment LastModified [...] Referral colonoscopy referral 2017 MARICRUZ Serrano MD, [address] [place] [address] Dr, [address], [address], 8 12:55:58 Procedures None recorded. Surgeries None recorded. Imaging None recorded. Medication Orders None recorded. Patient TargetsNo targets recorded. Patient Instructions Encounter Date Encounter Id Patient Instructions Last Modified By Organization Details Last Modified Time 05/29/2018 [id number] Continue healthy diet/ exercise esclaudio Not available [...] Address Organization Details Recorded Time Ta thyroiditis [id number] Active 2017 Jane Hatfield NP, S [address] [place] [address], [phone], [facility] Internal Medicine 8 15:23:23 Problem Notes None recorded. Procedures Surgical History Date Name Laterality Status Provider Name and Address Organization Details Recorded Time 018 Date of Last Pap Smear completed Jane Hatfield NP, S [address] [place] [address], [phone], [facility] Internal [facility] 05/29/2018 15:07:04 018 Most Recent Mammogram completed Jane Hatfield NP, S [address] [place] [address], [phone], [facility] 05/29/2018 15:08:23 Incision of eardrum completed Jane Hatfield NP, S [address] [place] [address], [phone], [facility] Internal [facility] 05/29/2018 15:04:56 Tonsillectomy completed Jane koenig NP, S [address] [place] [address], [phone], [facility] Internal [facility] 05/29/2018 15:05:05 Suspension of uterus completed Jane Hatfield NP, S [address] [place] [address], [phone], [facility] Internal [facility] 05/29/2018 15:06:20 Rhinoplasty completed Jane Lynn i, NP, S [address] [place] [address], [phone], [facility] Internal [facility] 05/29/2018 15:06:38 Eye Surgery completed Jane Lynn i, NP, S [address] [place] [address], [phone], [facility] Medicine 05/29/2018 15:15:36 Imaging [...] Updated DateTime 8 164.47 cm 26 kg/m2 13256.5 4 g 73 /min 97 % 97 % 100 mm[Hg] 68 mm[Hg] Re Mckeonisidra [facility] Internal Medicine 8 14:58:09 Social History Question Answer Notes LastModified by Organizat ion Details LastModified Time Tobacco Smoking Status Never Smoker Re Payne quoc [facility] Internal Medicine 05/29/2018 14:57:15 What Was [...] preservative 8 completed Jane Hatfield NP, S [address] [place] [address], [phone], [facility] Internal Medicine 05/29/2018 15:39:11 Past Encounters Encounter ID Performer Location Encounter Start Date Encounter Closed Date Diagnosis/Indication Diagnosis SNOMED-CT Code Diagnosis ICD10 Code Diagnosis Note [id number] Gamaliel Melton [facility] Internal Medicine [address] [facility],[place] [address] 05/29/2018 14:46:53 05/30/2018 12:25:10 Screening procedure 59887351 Z13.9 Ta thyroiditis 21 462616 E06.3 Health Concerns Section Related Observation LastModified by Organization Detai ls LastModified Time None Recorded Concern Status LastModified by Organization Details LastModified Time None Recorded Advance Directives Directive None Recorded Payers Encounter Date Sequence Insurance Name Policy Number Policy Diego Covered Member ID Diego Member ID Guarantor Name 05/29/2018 1 [facility] [place] [id number] Irma Hobbs [id number] Irma Hobbs Notes Date Note Type [...] help Jane Hatfield NP, [address] [place], [address], [facility] 05/29/2018 15:39:30 OBGyn Episode No OBEpisode recorded.
--- NOTE | 2024-12-20 11:53 | A.OFFPC_ITS ---
Vital Signs 12/20/24 11:55 Height 5 ft 5.5 in Weight 179 lb BMI 29.3 BP 120/80 Blood Pressure Location Lt brachial Position Sitting Respiration 18 Pulse 64 Pulse Source Pulse Oximeter Temp 97.3 F Temp Source Oral Pulse Oximetry (%) 98 Oxygen Delivery Method Room Air Intake Visit Reasons: 2m follow up Intake Note: Pt is here today for her 2mo. f/u Allergies No Known Allergies Allergy (Verified 12/20/24 11:54) Medication List - Last Reconciled 12/20/24 by Brianne Cordoba MD omeprazole 20 mg PO DAILY Tobacco use date assessed: 12/20/24 Dental Screening Dental Screen Date: 12/20/24 Did you have a dental visit in the last 12 months?: Yes Did you have a dental problem in the last 6 months where you did not have access to dental care?: No Was dental information given to patient?: Patient has dentist HPI 2m follow up HPI Details Patient presents for the follow-up of GERD, resolved after 2 months of omeprazole. Patient has been following anti GERD diet. She had 2 episodes of urinary tract infection last month and is finishing cephalexin for the 2nd infection. She denies dysuria increased urinary frequency PFSH Medical History Heart murmur Normal breast exam Normal pelvic exam Annual physical exam Ta's disease Surgical History H/O colonoscopy Family History Father Heart disease Bone cancer Prostate cancer HTN (hypertension) Mother HTN (hypertension) Diabetes Social History Household Members Other:: lives with partner, 2 sons(17 and 21) 06/22 Housing: House Patient Tobacco Use Status: Never used Tobacco e-Cigarette/Vaping Use: Never Used Second Hand Smoke Exposure: No service: No Current occupational status: employed Cognitive needs: No Hearing needs: No Vision needs: Yes Questionnaire Thrive Questionnaire Date Thrive assessed: 10/21/24 I am a: Patient What is your living situation today?: I have a steady place to live Within the past 12 months, did the food you bought not last and you didn't have the money to get more?: Never true Within the past 12 months, did you worry whether your food would run out before you got money to buy more?: Never true Do you have trouble paying for medicines?: No Do you have trouble getting transportation to medical appointments?: No Do you have trouble paying your heating and electricity bill?: No Do you have trouble taking care of your child, family member or friend?: No Do you have trouble with day-to-day activities such as bathing, preparing meals, shopping, managing finances, etc.?: No Are you currently unemployed and looking for a job?: No Are you interested in more education?: No Please select the resources that you would like help with: None Currently or been in a relationship where the following occur: No concerns reported THRIVE Score: 0 ANTONIETA-7 AMB Questionnaire ANTONIETA-7 Date ANTONIETA - 7 assessed: 10/22/24 Source: Developed by Drs. Milan Hawkins, Melissa Mcallister, Don Lala and colleagues, with an educational su from [employer]. Review of Systems Const All systems reviewed & are unremarkable except as noted in HPI and below Eyes Reports no additional complaints ENT Reports no additional complaints Card Reports no additional complaints Resp Reports no additional complaints GI Reports no additional complaints Reports no additional complaints Physical exam (Primary Care) Vital Signs: Last Vital Signs Temp 97.3 F 12/20/24 11:55 Pulse 64 12/20/24 11:55 Resp 18 12/20/24 11:55 BP 120/90 H 12/20/24 11:55 Pulse Ox 98 12/20/24 11:55 Oxygen Delivery Method Room Air 12/20/24 11:55 BMI result Body Mass Index 29.3 Tobacco/Smoking Status: Tobacco use Status Tobacco use date assessed 12/20/24 12/20/24 11:55 Patient Tobacco Use Status Never used Tobacco 12/20/24 11:55 e-Cigarette/Vaping Use Never Used 12/20/24 11:55 Thrive Assessment: Date of Thrive Assessment Date Thrive assessed 10/21/24 12/20/24 11:55 Currently or been in a relationship where the following occur: No concerns reported Const General: no acute distress HENMT Head: Yes normal to inspection Face and sinus: Yes normal facial exam Throat: Yes posterior oropharynx normal Neck Neck: Yes supple Resp Effort & Inspection: normal respiratory effort Auscultation: clear to auscultation bilaterally Cardio Rhythm: regular rhythm Heart sounds: S1 normal heart sound present and S2 normal heart sound present GI Inspection: Yes normal to inspection Palpation (GI): Soft to palpation Percussion: Yes normal to percussion Auscultation: normal bowel sounds Coding Level of Care Code Est Pt Level 3 (21421) Diagnoses UTI (urinary tract infection) N39.0 GERD (gastroesophageal reflux disease) K21.9 Assessment & Plan Assessment & Plan (1) UTI (urinary tract infection): Code(s): N39.0 - Urinary tract infection, site not specified Category: Medical Plan: Patient will return in 1 week to repeat urinalysis and urine culture. UTI prophylaxis discussed with the patient (2) GERD (gastroesophageal reflux disease): Code(s): K21.9 - Gastro-esophageal reflux disease without esophagitis Category: Medical Plan: Continue anti GERD diet increase exercise weight loss discussed with the patient Orders: Orders Urine Culture 1 Week N3.0 - Urinary tract infection, site not specified Comprehensive [place]. Panel Fast 10 Months - Other specified abnormal findings of blood chemistry, Z00.00 - Encounter for general adult medical examination without abnormal findings Lipid Panel 10 Months - Other specified abnormal findings of blood chemistry, Z00.00 - Encounter for general adult medical examination without abnormal findings UA w Microscopic 10 Months - Other specified abnormal findings of blood chemistry, Z00.00 - Encounter for general adult medical examination without abnormal findings Vitamin D 25-OH Total 10 Months - Other specified abnormal findings of blood chemistry, Z00.00 - Encounter for general adult medical examination without abnormal findings UA w Microscopic 1 Week N39.0 - Urinary tract infection, site not specified Complete Blood Count Auto Diff 10 Months - Other specified abnormal findings of blood chemistry, Z00.00 - Encounter for general adult medical examination without abnormal findings TSH reflex Free T4 10 Months - Other specified abnormal findings of blood chemistry, Z00.00 - Encounter for general adult medical examination witho ut abnormal findings
[2024-12-20 11:55] VITALS: BP 120/80; PULSE 64; RESP 18; TEMP 36.3; O2SAT 98; BMI 29.3
== END 2024-12-20 12:36 | disposition home or self-care (01) ==
LOC: HO.HMCC 11:49
PROVIDERS: PCP Internal Medicine; Visit Provider Internal Medicine
DX: N39.0 Urinary tract infection, site not specified (principal); K21.9 Gastro-esophageal reflux disease without esophagitis

== ENCOUNTER → 2024-12-20 11:48 | Outpatient (BNVA) | payer BC, SELFPAY | PROVIDERS: PCP Internal Medicine; Visit Provider Internal Medicine | DX: Z13.89 Encounter for screening for other disorder (principal) ==

== ENCOUNTER 2024-12-31 07:05 | Outpatient (REF) | payer BC, SELFPAY ==
--- OUTSIDE RECORDS SUMMARY | 2024-12-31 07:06 | XMS_ITS | Data Portability ---
Author Organization [facility] Address [address] [place] [address] Assessment Encounter Date Assessment Date Assessment LastModified [...] Referral colonoscopy referral 2017 MARICRUZ Serrano MD, [address] [place] [address] Dr, [address], [address], 8 12:55:58 Procedures None recorded. Surgeries None recorded. Imaging None recorded. Medication Orders None recorded. Patient TargetsNo targets recorded. Patient Instructions Encounter Date Encounter Id Patient Instructions Last Modified By Organization Details Last Modified Time 05/29/2018 [id number] Continue healthy diet/ exercise esclaudio Not available [...] Address Organization Details Recorded Time Ta thyroiditis [id number] Active 2017 Jane Hatfield NP, [address] [place] [address], [phone], [facility] 8 15:23:23 Problem Notes None recorded. Procedures Surgical History Date Name Laterality Status Provider Name and Address Organization Details Recorded Time 018 Date of Last Pap Smear completed Jane Hatfield NP, [address] [place] [address], [phone], [facility] 05/29/2018 15:07:04 018 Most Recent Mammogram completed Jane Hatfield NP, [address] [place] [address], [phone], [facility] 05/29/2018 15:08:23 Incision of eardrum completed Jane Hatfield NP, [address] [place] [address], [phone], [facility] 05/29/2018 15:04:56 Tonsillectomy completed Jane koenig NP, [address] [place] [address], [phone], [facility] 05/29/2018 15:05:05 Suspension of uterus completed Jane Hatfield NP, [address] [place] [address], [phone], [facility] 05/29/2018 15:06:20 Rhinoplasty completed Jane Lynn i, NP, [address] [place] [address], [phone], [facility] 05/29/2018 15:06:38 Eye Surgery completed Jane Lynn i, NP, [address] [place] [address], [phone], [facility] 05/29/2018 15:15:36 Imaging Results [...] Updated DateTime 8 164.47 cm 26 kg/m2 36368.5 4 g 73 /min 97 % 97 % 100 mm[Hg] 68 mm[Hg] Re Mc[facility]onis[facility] 8 14:58:09 Social History Question Answer Notes LastModified by Organizat ion Details LastModified Time Tobacco Smoking Status Never Smoker Re [facility] 05/29/2018 14:57:15 What Was The [...] N Breast Cancer N Blood Transfusion N Depression N COPD N Lung Disease N Hypothyroidism N Defects [...] preservative 8 completed Jane Hatfield NP, [address] [place] [address], [phone], [facility] 05/29/2018 15:39:11 Past Encounters Encounter ID Performer Location Encounter Start Date Encounter Closed Date Diagnosis/Indication Diagnosis SNOMED-CT Code Diagnosis ICD10 Code Diagnosis Note [id number] Gamaliel Melton [facility] [address] [facility],[place] [address] 05/29/2018 14:46:53 05/30/2018 12:25:10 Screening procedure 29704218 Z13.9 Ta thyroiditis 21 314012 E06.3 Health Concerns Section Related Observation LastModified by Organization Detai ls LastModified Time None Recorded Concern Status LastModified by Organization Details LastModified Time None Recorded Advance Directives Directive None Recorded Payers Encounter Date Sequence Insurance Name Policy Number Policy Diego Covered Member ID Diego Member ID Guarantor Name 05/29/2018 1 [facility] [place] [id number] Irma Hobbs [id number] Irma Hobbs Notes Date Note Type [...] cheaters help Jane Hatfield NP, [address] [place], [address], [facility] 05/29/2018 15:39:30 OBGyn Episode No OBEpisode recorded.
[2024-12-31 10:45] LABS: Appearance Urine Clear; Color Urine Yellow; Glucose Urine UA Negative (Negative); Leukocyte Esterase Urine Negative (Negative); Nitrite Urine Negative (Negative); PH 6.5 (5.0-9.0); Specific Gravity - Urine <= 1.005 (1.005-1.025); Urine Blood Negative (Negative); Urine Ketones Negative (Negative); Urine Protein Negative (Neg-Trace)
[2024-12-31 10:47] LABS: Bacteria Urine None Seen (None Seen); Hyaline Casts Urine 0-2 /LPF (0-2); RBC Urine 0-2 /HPF (0-2); Squamous Epithelial Cell Urine 0-2 /HPF (0-2); WBC Urine 0-5 /HPF (0-5)
== END 2024-12-31 07:06 | disposition home or self-care (01) ==
LOC: HO.HMGCLDS 07:05
PROVIDERS: PCP Internal Medicine; Visit Provider Internal Medicine
DX: N39.0 Urinary tract infection, site not specified (principal)
CPT/HCPCS: 81001; 87086

== ENCOUNTER 2025-01-10 08:09 | Outpatient (REF) | payer BC, SELFPAY | END 2025-01-10 08:10 | disposition home or self-care (01) | LOC: HO.LAB 08:09 | PROVIDERS: PCP Internal Medicine | DX: N39.0 Urinary tract infection, site not specified (principal) | CPT/HCPCS: 81003; 87086; 87088; 87186 ==

== ENCOUNTER → 2025-01-10 08:09 | Outpatient (AMB) | payer BC, SELFPAY ==
[2025-01-10 08:10] VITALS: BP 128/84; PULSE 74; TEMP 36.4; O2SAT 99; BMI 29.8
--- NOTE | 2025-01-10 08:10 | MHC.OFFWIV ---
Intake Vital Signs 01/10/25 08:10 Height 5 ft 5.5 in Weight 182 lb 2 oz BMI 29.8 BP 128/84 Blood Pressure Location Lt brachial Position Sitting Pulse 74 Pulse Source Pulse Oximeter Temp 97.6 F Temp Source Oral Pulse Oximetry (%) 99 Oxygen Delivery Method Room Air Intake Visit Reasons: EP UTI?? Intake Note: Pt presents to the office today for c/o UTI symptoms, burning with urination,pain,frequency. Pt states she started taking OTC Uqora on Monday when her symptoms started. Patient Tobacco Use Status: Never used Tobacco Allergies No Known Allergies Allergy (Verified 01/10/25 08:19) HPI HPI Comments History of Present Illness Details This is a this is a 54-year-old female with no stated past medical history presenting for evaluation of dysuria, urinary frequency and urinary pressure that she has had since Monday. Patient states that she has had 2 other urinary tract infection since October which were treated through an urgent care center in [place]. Patient denies having any fevers or chills but states that she does have some right flank pain. Patient was treated with Macrobid most recently. [facility] Medical History Heart murmur Normal breast exam Normal pelvic exam Annual physical exam Ta's disease Surgical History H/O colonoscopy Family History Father Heart disease Bone cancer Prostate cancer HTN (hypertension) Mother HTN (hypertension) Diabetes Social History Household Members Other:: lives with partner, 2 sons(17 and 21) 06/22 Housing: House Patient Tobacco Use Status: Never used Tobacco e-Cigarette/Vaping Use: Never Used Second Hand Smoke Exposure: No service: No Current occupational status: employed Cognitive needs: No Hearing needs: No Vision needs: Yes Review of Systems Const All systems reviewed & are unremarkable except as noted in HPI and below Eyes Reports no additional complaints ENT Reports no additional complaints Card Reports no additional complaints Resp Reports no additional complaints GI Reports no additional complaints Reports dysuria, Reports flank pain (right), Denies urinary incontinence and Reports urinary urgency Musc Reports no additional complaints Skin/Breast Reports system reviewed and no additional complaints, except as documented Neuro Reports no additional complaints Psych Reports no additional complaints Endo Reports no additional complaints [place]/Lymph Reports no additional complaints Physical Exam Vital Signs: Last Vital Signs Temp 97.6 F 01/10/25 08:10 Pulse 74 01/10/25 08:10 BP 128/84 01/10/25 08:10 Pulse Ox 99 01/10/25 08:10 Oxygen Delivery Method Room Air 01/10/25 08:10 BMI result Body Mass Index 29.8 Patient is afebrile. Const General: cooperative, healthy appearing, comfortable, no acute distress, well developed, alert, awake and Physically active Nutritional Appearance: average body habitus Orientation/consciousness: patient oriented x3 Limitations: no limitations Cardio Rate: regular rate Rhythm: regular rhythm GI Palpation (GI): Soft to palpation and Tenderness to palpation present (GI) suprapubicly; not in the LLQ, not in the RLQ and with no rebound tenderness General: Yes Bimanual renal exam normal bilaterally, No bladder normal to palpation and Yes no CVA tenderness Bimanual exam- vagina & uterus: No bladder normal to palpation Back/Spine/Pelvis Back: no CVA tenderness Skin General skin exam: no rashes or lesions noted Neuro General: patient oriented x3 Psych Appearance: grossly normal Mental Status: mental status grossly normal Insight: Good insight present (Psych) Judgement: Good judgement present (Psych) Results AMB Urinalysis, Automated UA Leukoctes 500 Aby/uL Last Edit by Arline Lynch CMA on 01/10/25 08:29 UA Nitrite Positive Last Edit by Arline Lynch CMA on 01/10/25 08:29 UA Urobilinogen 0.2 mg/dL Last Edit by Arline Lynch CMA on 01/10/25 08:29 UA Protein 15 mg/dL Last Edit by Arline Lynch CMA on 01/10/25 08:29 UA pH 7.0 Last Edit by Arline Lynch CMA on 01/10/25 08:29 UA Blood 200 Charlie/uL Last Edit by Arline Lynch CMA on 01/10/25 08:29 UA Specific Gibson 1.005 Last Edit by Arline Lynch CMA on 01/10/25 08:29 UA Ketone Negative Last Edit by Arline Lynch CMA on 01/10/25 08:29 UA Bilirubin 0 mg/dL Last Edit by Arline Lynch CMA on 01/10/25 08:29 UA Glucose 0 mg/dL Last Edit by Arline Lynch CMA on 01/10/25 08:29 Results Reviewed Results Reviewed: Urinalysis is consistent with an acute urinary tract infection. Assessment & Plan Assessment & Plan (1) UTI (urinary tract infection): Comment: Patient's urinalysis is consistent with an acute urinary tract infection. Given the frequency of her symptoms, a urine culture will be obtained. Code(s): N39.0 - Urinary tract infection, site not specified Qualifiers: Urinary tract infection type: acute cystitis Plan: Keflex 500 mg q.i.d.; urine culture is pending. Orders: Orders Urine Culture Today N39.0 - Urinary tract infection, site not specified AMB Urinalysis Automated Today Z13.9 - Encounter for screening, unspecified Medications: New cephalexin 500 mg PO Q6H 28 caps 0RF phenazopyridine 100 mg PO TID 20 tabs 0RF Coding Level of Care Code Est Pt Level 3 (92805) Diagnoses UTI (urinary tract infection) N39.0 Urinary tract infection type: acute cystitis Time Spent (min) 20
--- OUTSIDE RECORDS SUMMARY | 2025-01-10 08:11 | XMS_ITS | Data Portability ---
[facility] Organization [facility] Patient Home Address [address] [place] [address] Assessment Encounter Date Assessment Date Assessment LastModified [...] Referral colonoscopy referral 2017 MARICRUZ Serrano MD, [address] [place] [address] Dr, [address], [address], 8 12:55:58 Procedures None recorded. Surgeries None recorded. Imaging None recorded. Medication Orders None recorded. Patient TargetsNo targets recorded. Patient Instructions Encounter Date Encounter Id Patient Instructions Last Modified By Organization Details Last Modified Time 05/29/2018 [id number] Continue healthy diet/ exercise [email or web address] Not available 05/29/2018 15:38:02 Shingrix vaccine info provided eskawski Not available 05/29/2018 15:38:14 Reason for Referral [...] Address Organization Details Recorded Time Ta thyroiditis [id number] Active 2017 Jane Hatfield NP, [address] [place] [address], [phone], [facility] 8 15:23:23 Problem Notes None recorded. Procedures Surgical History Date Name Laterality Status Provider Name and Address Organization Details Recorded Time 018 Date of Last Pap Smear completed Jane Hatfield NP, [address] [place] [address], [phone], [facility] 05/29/2018 15:07:04 018 Most Recent Mammogram completed Jane Hatfield NP, [address] [place] [address], [phone], [facility] 05/29/2018 15:08:23 Incision of eardrum completed Jane Hatfield NP, [address] [place] [address], [phone], [facility] 05/29/2018 15:04:56 Tonsillectomy completed Jane koenig NP, [address] [place] [address], [phone], [facility] 05/29/2018 15:05:05 Suspension of uterus completed Jane Hatfield NP, [address] [place] [address], [phone], [facility] 05/29/2018 15:06:20 Rhinoplasty completed Jane Lynn i, NP, [address] [place] [address], [phone], [facility] 05/29/2018 15:06:38 Eye Surgery completed Jane Lynn i, NP, [address] [place] [address], [phone], [facility] 05/29/2018 15:15:36 Imaging Results None [...] Updated DateTime 8 164.47 cm 26 kg/m2 30501.5 4 g 73 /min 97 % 97 % 100 mm[Hg] 68 mm[Hg] Re Payne [facility] 8 14:58:09 Social History Question Answer Notes LastModified by Organizat ion Details LastModified Time Tobacco Smoking Status Never Smoker Re Payne quoc [facility] 05/29/2018 14:57:15 What Was The [...] preservative 8 completed Jane Hatfield NP, [address] [place], [address], [facility] 05/29/2018 15:39:11 Past Encounters Encounter ID Performer Location Encounter Start Date Encounter Closed Date Diagnosis/Indication Diagnosis SNOMED-CT Code Diagnosis ICD10 Code Diagnosis Note [id number] Gamaliel Melton [facility] [address] [facility],[place] [address] 05/29/2018 14:46:53 05/30/2018 12:25:10 Screening procedure 55430123 Z13.9 Ta thyroiditis 21 204035 E06.3 Health Concerns Section Related Observation LastModified by Organization Detai ls LastModified Time None Recorded Concern Status LastModified by Organization Details LastModified Time None Recorded Advance Directives Directive None Recorded Payers Insurance Date Sequence Insurance Name Policy Number Policy Diego Covered Member ID Diego Member ID Guarantor Name 05/29/2018 1 [facility] [place] [id number] Irma Hobbs [id number] Irma Hobbs Notes Date Note Type [...] cheaters help Jane Hatfield NP, [address] [place], [address], [facility] 05/29/2018 15:39:30 OBGyn Episode No OBEpisode recorded.
== END ==
PROVIDERS: PCP Internal Medicine; Visit Provider Physician Assistant
DX: Z13.9 Encounter for screening, unspecified (principal); N39.0 Urinary tract infection, site not specified

== ENCOUNTER 2025-04-17 07:06 | Outpatient (REF) | payer BC, SELFPAY ==
[2025-04-17 12:10] LABS: Appearance Urine Clear; Glucose Urine UA Negative (Negative); PH 6.5 (5.0-9.0); Specific Gravity - Urine <= 1.005 (1.005-1.025); UMIC TRIGGER UACC YES
[2025-04-17 12:15] LABS: UACC Culture Trigger YES
== END 2025-04-17 07:07 | disposition home or self-care (01) ==
LOC: HO.LAB 07:06
PROVIDERS: Nurse Practitioner Family; PCP Internal Medicine
DX: Z13.89 Encounter for screening for other disorder (principal); R30.0 Dysuria
CPT/HCPCS: 81001; 81003; 87086; 87088; 87186

== ENCOUNTER 2025-04-17 07:06 | Outpatient (AMB) | payer BC, SELFPAY ==
--- NOTE | 2025-04-17 07:07 | AM.OFFWIN_ITS ---
Intake Vital Signs 04/17/25 07:12 Height 5 ft 5.5 in Weight 181 lb BMI 29.7 BP 110/86 Blood Pressure Location Rt brachial Position Sitting Respiration 15 Pulse 84 Pulse Source Pulse Oximeter Temp 97.8 F Temp Source Oral Pulse Oximetry (%) 98 Oxygen Delivery Method Room Air Intake Visit Reasons: EP-?uti Intake Note: Pt is here today c/o urgency and pain upon urination x2days Patient Tobacco Use Status: Never used Tobacco Allergies No Known Allergies Allergy (Verified 04/17/25 07:09) HPI HPI Comments History of Present Illness Details 54 y/o Female patient who presents to [facility] walk in clinic with c/o Urinary symptoms for 2 days now. She reports Burning with Urination, Frequency and Pressure on her Bladder. Denies Vomiting but reports Nausea. Denies Fevers or chills. Reports having Frequent UTIs - 3 this year already. [facility] Medical History Heart murmur Normal breast exam Normal pelvic exam Annual physical exam Ta's disease Surgical History H/O colonoscopy Family History Father Heart disease Bone cancer Prostate cancer HTN (hypertension) Mother HTN (hypertension) Diabetes Social History Household Members Other:: lives with partner, 2 sons(17 and 21) 06/22 Housing: House Patient Tobacco Use Status: Never used Tobacco e-Cigarette/Vaping Use: Never Used Second Hand Smoke Exposure: No service: No Current occupational status: employed Cognitive needs: No Hearing needs: No Vision needs: Yes Review of Systems Const All systems reviewed & are unremarkable except as noted in HPI and below Physical Exam Vital Signs: Last Vital Signs Temp 97.8 F 04/17/25 07:12 Pulse 84 04/17/25 07:12 Resp 15 04/17/25 07:12 BP 110/86 04/17/25 07:12 Pulse Ox 98 04/17/25 07:12 Oxygen Delivery Method Room Air 04/17/25 07:12 BMI result Body Mass Index 29.7 Const General: no acute distress Nutritional Appearance: overweight Orientation/consciousness: patient oriented x3 Resp Effort & Inspection: normal respiratory effort Auscultation: clear to auscultation bilaterally Cardio Heart sounds: S1 normal heart sound present and S2 normal heart sound present Other: Pelvic Examination Deferred. General: Yes no CVA tenderness Back/Spine/Pelvis Back: no CVA tenderness Neuro General: patient oriented x3, gait normal and moves all extremities Psych Speech and movement: Normal speech and movement present Results AMB Urinalysis, Automated UA Leukoctes 70 Bay/uL Last Edit by Zoë Mejia CMA on 04/17/25 07:17 UA Nitrite Negative Last Edit by Zoë Mejia CMA on 04/17/25 07:17 UA Urobilinogen 0.2 mg/dL Last Edit by Zoë Mejia CMA on 04/17/25 07:17 UA Protein 0 mg/dL Last Edit by Zoë Mejia CMA on 04/17/25 07:17 UA pH 6.0 Last Edit by Zoë Mejia CMA on 04/17/25 07:17 UA Blood 10 Charlie/uL Last Edit by Zoë Mejia CMA on 04/17/25 07:17 UA Specific [place] 1.005 Last Edit by Zoë Mejia CMA on 04/17/25 07:17 UA Ketone Negative Last Edit by Zoë Mejia CMA on 04/17/25 07:17 UA Bilirubin 0 mg/dL Last Edit by Zoë Mejia CMA on 04/17/25 07:17 UA Glucose 0 mg/dL Last Edit by Zoë Mejia CMA on 04/17/25 07:17 Results Reviewed Results Reviewed: Laboratory Last Values Urine pH (Auto) 6.0 04/17/25 07:08 Specific [place] (Auto) 1.005 04/17/25 07:08 Urine Protein (Auto) 0 mg/dL 04/17/25 07:08 Glucose (UA)(Auto) 0 mg/dL 04/17/25 07:08 Urine Ketones (Auto) Negative 04/17/25 07:08 Urine Blood (Auto) 10 Charlie/uL 04/17/25 07:08 Urine Nitrite (Auto) Negative 04/17/25 07:08 Urine Bilirubin (Auto) 0 mg/dL 04/17/25 07:08 Urine Urobilinogen (Auto) 0.2 mg/dL 04/17/25 07:08 Leukocyte Esterase (Auto) 70 Bay/uL 04/17/25 07:08 Assessment & Plan Assessment & Plan (1) Dysuria: Code(s): R30.0 - Dysuria Plan: Urinalysis today is consistent with an acute urinary tract infection. Given her recent frequency of her symptoms, Will send urine culture. Ordered Ciprofloxacin. Orders: Orders AMB Urinalysis Automated Today Z13.9 - Encounter for screening, unspecified UA CC w/rflx Micro + Cult Today N39.0 - Urinary tract infection, site not specified Medications: New ciprofloxacin HCl 500 mg PO BID 10 tabs 0RF 5 days R30.0 - Dysuria Coding Level of Care Code Est Pt Level 4 (50299) Diagnoses Dysuria R30.0 Time Spent (min) 20
--- OUTSIDE RECORDS SUMMARY | 2025-04-17 07:08 | XMS_ITS | Patient Health Record ---
Author Organization [facility] Address [address] [place] [address] Care Team Providers Care Manager Part Name Role Phone Liu CHAPARRO, Jane Primary Care Provider Unavail able Milan Serrano Unavailable [phone] Reason For Referral No Information Medications Medication SIG (Take, Route, Frequency, Duration) Notes Start Date End Date Status Collagen super as directed - as directed Active [facility] Rodriguez Wort 300 MG 1 capsule Orally On ce a day for 30 day(s) Active Vitamin D3 1000 UNIT 1 tablet Orally Onc e a day for 30 day(s) Active Whole Food Multivitamin - as directed Orally Active Immunizations Vaccine Route Administration Date Status Comme nts Influenza Unknown 04/04/2018 Administered Social History Tobacco Use: Social History Observation Description Date Details (start date - stop date) Never Smoker NA - NA Tobacco Use/Smoking Question Answer Notes Patient is a nonsmoker Alcohol Screen Question Answer Notes Did you have a drink contain ing alcohol in the past year? Yes How often did you have a dri nk containing alcohol in the past year? Monthly or less (1 point) How many drinks did you have on a typical day when you were drinking in the past year? 1 or 2 drinks (0 point) How often did you have 6 or more drinks on one occasion in the past year? Never (0 point) Points 1 Interpretation Negative Section Notes: Nonsmoker; no sig alcohol Problems Problem Type SNOMED Code ICD Code Onset Dates Problem Status W/U Status Risk Notes Problem 951617310 Encounter for screening for malignant neoplasm of colon (Z12.11) Active confirmed Problem 286701899516857 Preprocedural examination (Z01.818) Active confirmed Plan Of Treatment Future Test Test Name Order Date COLONOSCOPY 09/20/2018 Insurance Providers Payer Name Payer Address Payer Phone Subscriber Number Group Number Insured Name Patient Relationship to Insured Coverage Start Date Coverage End Date [facility] PROFESSIONAL CLAIMS [address] [place] [address] [id number] Self - patient is the insured Medical (General) History Medical History History ICD Code Denies [place],DM,CVA,Lung disease,renal dise ase Surgical History Surgery Date(Month/Year) Blood clot removal (back of head) from [facility] 1980 6 sets of ear tubes Tonsillectomy 1987 Bladder suspension 2005
[2025-04-17 07:12] VITALS: BP 110/86; PULSE 84; RESP 15; TEMP 36.6; O2SAT 98; BMI 29.7
== END 2025-04-17 08:05 | disposition home or self-care (01) ==
PROVIDERS: PCP Internal Medicine; Visit Provider Nurse Practitioner Family
DX: Z13.9 Encounter for screening, unspecified (principal); R30.0 Dysuria

== ENCOUNTER 2025-07-19 07:48 | Outpatient (REF) | payer BC, SELFPAY ==
--- OUTSIDE RECORDS SUMMARY | 2025-07-19 07:51 | XMS_ITS | Data Portability ---
Author Organization [facility] Telehealth Patient Home Address [address] [place] [address] Assessment Encounter Date Assessment Date Assessment LastModified [...] Referral colonoscopy referral 2017 MARICRUZ Serrano MD, [address] [place] [address] Dr, [address], [address], 8 12:55:58 Procedures None recorded. Surgeries None recorded. Imaging None recorded. Medication Orders None recorded. Patient TargetsNo targets recorded. Patient Instructions Encounter Date Encounter Id Patient Instructions Last Modified By Organization Details Last Modified Time 05/29/2018 [id number] Continue healthy diet/ exercise eskawski Not available 05/29/2018 15:38:02 Shingrix vaccine info [...] Address Organization Details Recorded Time Ta thyroiditis 42339933 Active 2017 Jane Hatfield NP, [address] [place] [address], [phone], [facility] 8 15:23:23 Problem Notes None recorded. Procedures Surgical History Date Name Laterality Status Provider Name and Address Organization Details Recorded Time 018 Date of Last Pap Smear completed Jane Hatfield NP, [address] [place] [address], [phone], [facility] 05/29/2018 15:07:04 018 Most Recent Mammogram completed Jane Hatfield NP, [address] [place] [address], [phone], [facility] 05/29/2018 15:08:23 Incision of eardrum completed Jane Hatfield NP, [address] [place] [address], [phone], [facility] 05/29/2018 15:04:56 Tonsillectomy completed Jane koenig NP, [address] [place] [address], [phone], [facility] 05/29/2018 15:05:05 Suspension of uterus completed Jane Hatfield NP, [address] [place] [address], [phone], [facility] 05/29/2018 15:06:20 Rhinoplasty completed Jane Lynn i, NP, [address] [place] [address], [phone], [facility] 05/29/2018 15:06:38 Eye Surgery completed Jane Lynn i, NP, [address] [place] [address], [phone], [facility] 05/29/2018 15:15:36 Imaging Results None [...] (BMI) Body weight Heart rate Oxygen saturation Systolic And Diastolic Provider Name and Address Organization Details Last Updated DateTime 8 164.47 cm 26 kg/m2 15300.5 4 g 73 /min 97 % 100/68 mm[Hg] Re Payne [facility] 8 14:58:09 Social History Question Answer Notes LastModified by Organizat ion Details LastModified Time Tobacco Smoking Status Never Smoker Re kumari [facility] 05/29/2018 14:57:15 What [...] eskawski Not available 2017 15:03:50 Sister Malignant neoplasm of breast 54 hypoth yroid eskawski Not available 05/29/2018 15:04:27 Medical History Condition Response Coronary Artery Disease N Gout N Blood Diseases N Kidney Stones N Hyperthyroidism N Blood Transfusion N Breast Cancer N Depression N COPD N Hypothyroidism N Lung Disease N Defects [...] 8 completed Jane Hatfield NP, [address] [place], [address], [facility] 05/29/2018 15:39:11 Past Encounters Encounter ID Performer Location Encounter Start Date Encounter Closed Date Diagnosis/Indication Diagnosis SNOMED-CT Code Diagnosis ICD10 Code Diagnosis IMO Codes Diagnosis Note [id number] Gamaliel Melton [facility] [address] [facility],[place] [address] 05/29/2018 14:46:53 05/30/2018 12:25:10 Screening procedure 10505629 Z13.9 Ta thyroiditis 21 837439 E06.3 Health Concerns Section Related Observation LastModified by Organization Detai ls LastModified Time None Recorded Concern Status LastModified by Organization Details LastModified Time None Recorded Advance Directives Directive None Recorded Payers Insurance Date Sequence Insurance Name Policy Number Policy Diego Covered Member ID Diego Member ID Guarantor Name 05/29/2018 1 [facility] [id number] Irma Hobbs [id number] Irma Hobbs Notes Date Note Type Note Provider Name a nd Address Organization Details Recorded Time 8 text/html Annual WellnessReported by PatientSocial/Behavio ral HistoryFor diet and nutrition, patient reportshealthy dietanddiscussed maintaining calcium balance. For fracture risk, patient reportsno history of fractures,no recent explained fracture,no sudden unexplained fractures, andno previous musculoskeletal injuries. For physical activity, patient reportsexercises on a regular basisandgood physical condition(cardio and weights/ [employer] 3-4 x week). For additional lifestyle factors, patient reportsno tobacco useanddrinks alcohol (mild-moderate).Menta l Status:For depression risk, patient reportsnever feels sad, empty, or tearful,no loss of interest in activities,no significant changes in weight,no sleep disturbances or insomnia,no agitation,no loss of energy,no feelings of worthlessness or guilt,no thoughts of suicide,no history of depression, andno history of mood disorders.Functional AbilityFor vision, patient reportsworse near(cheaters help). For hearing, patient reportsno loss of hearing. Jane Hatfield NP, [address] [facility], [place], [address], [facility] 05/29/2018 15:39:30 OBGyn Episode No OBEpisode recorded.
--- OUTSIDE RECORDS SUMMARY | 2025-07-19 07:51 | XMS_ITS | Patient Health Record ---
Author Organization [facility] Address [address] [place] [address] Care Team Providers Care Counseling Program Leader Name Role Phone Liu CHAPARRO, Jane Primary Care Provider Unavail able Milan Serrano Unavailable [phone] Reason For Referral No Information Medications Medication SIG (Take, Route, Frequency, Duration) Notes Start Date End Date Status Collagen super youth as directed - as directed Active St Rodriguez Wort 300 MG Capsule 1 capsule Orally Once a day; Duration: 30 day(s) Active Vitamin D3 1000 UNIT Tablet 1 tablet Ora lly Once a day; Duration: 30 day(s) Active Whole Food Multivitamin - Tablet as directed Orally Active Immunizations Vaccine Route Administration Date Status Comme nts Influenza Unknown 04/04/2018 Administered Social History Tobacco Use: Social History Observation Description Date Details (start date - stop date) Never Smoker NA - NA Social History Drugs/Alcohol: Social Info Question Answer Notes Alcohol Screen Did you have a drink containing alcohol in the past year? Yes How often did you have a drink containing alcohol in the past year? Monthly or less (1 point) How many drinks did you have on a typical day when you were drinking in the past year? 1 or 2 drinks (0 point) How often did you have 6 or more drinks on one occasion in the past year? Never (0 point) Points 1 Interpretation Negative Tobacco Use: Social Info Question Answer Notes Tobacco Use/Smoking Patient is a nonsmoker Additional Details Category Social Info Options Details Miscellaneous: Marital status: Occupation: Bank-- account d ept Section Notes: Nonsmoker; no sig alcohol Problems Problem Type SNOMED Code ICD Code Onset Dates Problem Status W/U Status Risk Notes Problem Screening for malignant neoplasm of colon (312011956) Encounter for screening for malignant neoplasm of colon (Z12.11) Active confirmed Problem Preprocedural examination (890520792604059) Preprocedural examination (Z01.818) Active confirmed Plan Of Treatment Future Test Test Name Order Date COLONOSCOPY 09/20/2018 Insurance Providers Payer Name Payer Address Payer Phone Subscriber Number Group Number Insured Name Patient Relationship to Insured Coverage Start Date Coverage End Date [facility] PROFESSIONAL CLAIMS [address] [place] [address] [id number] Self - patient is the insured Medical (General) History Medical History History ICD Code Denies [place],DM,CVA,Lung disease,renal dise ase Surgical History Surgery Date(Month/Year) Blood clot removal (back of head) from [facility] 1980 6 sets of ear tubes Tonsillectomy 1987 Bladder suspension 2005
[2025-07-19 11:41] LABS: Appearance Urine Clear; Glucose Urine UA Negative (Negative); PH 7.0 (5.0-9.0); Specific Gravity - Urine 1.015 (1.005-1.025); UMIC TRIGGER UA YES
[2025-07-19 11:47] LABS: MANUAL DIFF FLAG NO
[2025-07-19 11:52] LABS: Hematocrit 44.5 % (37.0-47.0); Hemoglobin 14.6 g/dl (12.0-16.0); Imm Gran Abs Auto 0.01 X10*3/uL (0.00-0.03); Imm Gran Pct Auto 0.2 % (0.0-0.4); Lymphocytes Absolute Auto 2.3 X10*3/uL (1.2-4.9); Mean Corpuscular HGB Conc 32.8 g/dl (31.0-35.0); Mean Corpuscular Hemoglobin 28.6 pg (27.0-33.0); Mean Corpuscular Volume 87.1 fL (80.0-98.0); NRBC Abs Auto 0.000 X10*3/uL (0.0-0.012); NRBC Pct Auto 0.0 /100WBC (0.0-0.2); Platelet Count 229 X10*3/uL (160-400); Red Blood Count 5.11 X10*6/uL (4.20-5.50); White Blood Count 5.2 X10*3/uL (4.8-10.8)
[2025-07-19 12:22] LABS: Alanine Aminotransferase 31 U/L (0-31); Albumin Level 4.6 g/dL (3.5-5.0); Alkaline Phosphatase 196 U/L (39-117); Anion Gap 13 (12-20); Aspartate Amino Transferase 30 U/L (5-31); Blood Urea Nitrogen 14 mg/dL (9-16); Calcium 9.9 mg/dL (8.4-10.2); Carbon Dioxide 27 mmol/L (22-29); Chloride 108 mmol/L (96-108); Cholesterol 198 mg/dL (<200); Estimated Glomerular Filt Rate > 60; HDL Cholesterol 87 mg/dL (>40); Potassium 4.6 mmol/L (3.3-5.1); Sodium 143 mmol/L (135-145); Total Protein 7.0 g/dL (6.5-8.0); Triglycerides 42 mg/dL (<150)
== END 2025-07-19 07:49 | disposition home or self-care (01) ==
LOC: HO.HMGCLDS 07:48
PROVIDERS: PCP Internal Medicine; Visit Provider Internal Medicine
DX: Z00.00 Encounter for general adult medical examination without abnormal findings (principal); R79.89 Other specified abnormal findings of blood chemistry; Z13.21 Encounter for screening for nutritional disorder; Z13.29 Encounter for screening for other suspected endocrine disorder
CPT/HCPCS: 36415; 80053; 80061; 81001; 82306; 84443; 85025

== ENCOUNTER 2025-07-30 11:46 | Outpatient (AMB) | payer BC, SELFPAY ==
--- NOTE | 2025-07-30 12:17 | MHC.PC.OV ---
Vital Signs 07/30/25 12:18 Height 5 ft 5.5 in Weight 185 lb BMI 30.3 BP 120/78 Blood Pressure Location Rt brachial Position Sitting Respiration 16 Pulse 74 Pulse Source Pulse Oximeter Pulse Oximetry (%) 97 Oxygen Delivery Method Room Air Intake Visit Reasons: Annual PE Intake Note: Pt is here today for PE. Allergies No Known Allergies Allergy (Verified 07/30/25 12:26) Medication List - Last Reconciled 07/30/25 by Brianne Cordoba MD multivitamin 1 tab PO DAILY Tobacco use date assessed: 07/30/25 Dental Screening Dental Screen Date: 12/20/24 HPI Annual PE HPI Details Pt presents for PE. PFSH Medical History Heart murmur Normal breast exam Normal pelvic exam Annual physical exam Ta's disease Surgical History H/O colonoscopy Family History Father Heart disease Bone cancer Prostate cancer HTN (hypertension) Mother HTN (hypertension) Diabetes Social History Household Members Other:: lives with partner, 2 sons(17 and 21) 06/22 Housing: House Patient Tobacco Use Status: Never used Tobacco e-Cigarette/Vaping Use: Never Used Second Hand Smoke Exposure: No service: No Current occupational status: employed Cognitive needs: No Hearing needs: No Vision needs: Yes Questionnaire Thrive Questionnaire Date Thrive assessed: 10/21/24 I am a: Patient What is your living situation today?: I have a steady place to live Within the past 12 months, did the food you bought not last and you didn't have the money to get more?: Never true Within the past 12 months, did you worry whether your food would run out before you got money to buy more?: Never true Do you have trouble paying for medicines?: No Do you have trouble getting transportation to medical appointments?: No Do you have trouble paying your heating and electricity bill?: No Do you have trouble taking care of your child, family member or friend?: No Do you have trouble with day-to-day activities such as bathing, preparing meals, shopping, managing finances, etc.?: No Are you currently unemployed and looking for a job?: No Are you interested in more education?: No Currently or been in a relationship where the following occur: No concerns reported THRIVE Score: 0 ANTONIETA-7 AMB Questionnaire ANTONIETA-7 Date ANTONIETA - 7 assessed: 10/22/24 Source: Developed by Drs. Milan Hawkins, Melissa Mcallister, Don Lala and colleagues, with an educational su from [email or web address]. Review of Systems Const All systems reviewed & are unremarkable except as noted in HPI and below Eyes Reports no additional complaints ENT Reports no additional complaints Card Reports no additional complaints Resp Reports no additional complaints GI Reports no additional complaints Reports no additional complaints Physical exam (Primary Care) Vital Signs: Last Vital Signs Pulse 74 07/30/25 12:18 Resp 16 07/30/25 12:18 BP 120/78 07/30/25 12:18 Pulse Ox 97 07/30/25 12:18 Oxygen Delivery Method Room Air 07/30/25 12:18 BMI result Body Mass Index 30.3 Tobacco/Smoking Status: Tobacco use Status Tobacco use date assessed 07/30/25 07/30/25 12:29 Patient Tobacco Use Status Never used Tobacco 07/30/25 12:18 e-Cigarette/Vaping Use Never Used 07/30/25 12:18 Thrive Assessment: Date of Thrive Assessment Date Thrive assessed 10/21/24 07/30/25 12:18 Currently or been in a relationship where the following occur: No concerns reported Const General: no acute distress HENMT Head: Yes normal to inspection Face and sinus: Yes normal facial exam Throat: Yes posterior oropharynx normal Eyes General: appearance normal, both eyes and all related structures Neck Neck: Yes no lymphadenopathy and Yes supple Resp Effort & Inspection: normal respiratory effort Auscultation: clear to auscultation bilaterally Cardio Rhythm: regular rhythm Heart sounds: S1 normal heart sound present and S2 normal heart sound present GI Inspection: Yes normal to inspection Palpation (GI): Soft to palpation Percussion: Yes normal to percussion Auscultation: normal bowel sounds Coding Level of Care Code Est Pt Prev Care 40-64y(50318) Diagnoses Annual physical exam Z00.00 Assessment & Plan Assessment & Plan (1) Annual physical exam: Code(s): Z00.00 - Encounter for general adult medical examination without abnormal findings Category: Medical Plan: Well-balanced diet regular physical activity discussed with the patient. She is up-to-date with the mammogram at [facility], Pap smear by telecom network manager and negative colonoscopy in 2019 Orders: Orders Complete Blood Count Auto Diff 1 Year Z00.00 - Encounter for general adult medical examination without abnormal findings TSH reflex Free T4 1 Year Z00.00 - Encounter for general adult medical examination without abnormal findings Comprehensive [place]. Panel Fast 1 Year Z00.00 - Encounter for general adult medical examination without abnormal findings Lipid Panel 1 Year Z00.00 - Encounter for general adult medical examination without abnormal findings Vitamin D 25-OH Total 1 Year Z00.00 - Encounter for general adult medical examination without abnormal findings UA w Microscopic 1 Year Z00.00 - Encounter for general adult medical examination without abnormal findings
[2025-07-30 12:18] VITALS: BP 120/78; PULSE 74; RESP 16; O2SAT 97; BMI 30.3
--- OUTSIDE RECORDS SUMMARY | 2025-07-30 13:31 | XMS_ITS | Data Portability ---
Author Organization [facility], Telehealth Patient Home Address [address] [place] [address] Assessment Encounter Date Assessment Date Assessment LastModified [...] Referral colonoscopy referral 2017 MARICRUZ Serrano MD, [address] [place] [address] Dr, [address], [address], 8 12:55:58 Procedures None recorded. Surgeries None recorded. Imaging None recorded. Medication Orders None recorded. Patient TargetsNo targets recorded. Patient Instructions Encounter Date Encounter Id Patient Instructions Last Modified By Organization Details Last Modified Time 05/29/2018 [id number] Continue healthy diet/ exercise eskawski Not available [...] Address Organization Details Recorded Time Ta thyroiditis 10042299 Active 2017 Jane Hatfield NP, [address] [place] [address], [phone], [facility] 8 15:23:23 Problem Notes None recorded. Procedures Surgical History Date Name Laterality Status Provider Name and Address Organization Details Recorded Time 018 Date of Last Pap Smear completed Jane Hatfield NP, [address] [place] [address], [phone], [facility] Internal [facility] 05/29/2018 15:07:04 018 Most Recent Mammogram completed Jane Hatfield NP, [address] [place] [address], [id number], [facility] 05/29/2018 15:08:23 Incision of eardrum completed Jane Hatfield NP, [address] [place] [address], [phone], [facility] 05/29/2018 15:04:56 Tonsillectomy completed Jane koenig NP, [address] [place] [address], [address], [facility] Internal [facility] 05/29/2018 15:05:05 Suspension of uterus completed Jane Hatfield NP, [address] [place] [address], [address], [facility] 05/29/2018 15:06:20 Rhinoplasty completed Jane Lynn i, NP, [address] [place] [address], [phone], [facility] 05/29/2018 15:06:38 Eye Surgery completed Jane Lynn i, NP, [address] [place] [address], [phone], [facility] 05/29/2018 15:15:36 Imaging Results [...] Updated DateTime 8 164.47 cm 26 kg/m2 63196.5 4 g 73 /min 97 % 100/68 mm[Hg] Re Payne [facility] 8 14:58:09 Social History Question Answer Notes LastModified by Organizat ion Details LastModified Time Tobacco Smoking Status Never Smoker Re kumari [facility] 05/29/2018 14:57:15 What Was [...] 8 completed Jane Hatfield NP, [address] [place], [address], [facility] 05/29/2018 15:39:11 Past Encounters Encounter ID Performer Location Encounter Start Date Encounter Closed Date Diagnosis/Indication Diagnosis SNOMED-CT Code Diagnosis ICD10 Code Diagnosis IMO Codes Diagnosis Note [id number] Gamaliel Melton [facility] [address] [facility],[place] [address] 05/29/2018 14:46:53 05/30/2018 12:25:10 Screening procedure 71685779 Z13.9 Ta thyroiditis 21 973832 E06.3 Health Concerns Section Related Observation LastModified by Organization Detai ls LastModified Time None Recorded Concern Status LastModified by Organization Details LastModified Time None Recorded Advance Directives Directive None Recorded Payers Insurance Date Sequence Insurance Name Policy Number Policy Diego Covered Member ID Diego Member ID Guarantor Name 05/29/2018 1 [facility]: [facility] [place] [id number] Irma Hobbs [id number] Irma Hobsb Notes Date Note Type Note Provider Name [...] of hearing. Jane Hatfield NP, [address] [facility], [place], [address], [facility] 05/29/2018 15:39:30 OBGyn Episode No OBEpisode recorded.
--- OUTSIDE RECORDS SUMMARY | 2025-07-30 13:32 | XMS_ITS | Patient Health Record ---
Author Organization [facility] Address [address] [place] [address] Care Team Providers Care Bottom Precipitator Operator Name Role Phone Liu CHAPARRO, Jane Primary Care Provider Unavail able Milan Serrano Unavailable [phone] Reason For Referral No Information Medications Medication [...] Problem Screening for malignant neoplasm of colon (364362375) Encounter for screening for malignant neoplasm of colon (Z12.11) Active confirmed Problem Preprocedural examination (371907312718797) Preprocedural examination (Z01.818) Active confirmed Plan Of Treatment Future Test Test Name Order Date COLONOSCOPY 09/20/2018 Insurance Providers Payer Name Payer Address Payer Phone Subscriber Number Group Number Insured Name Patient Relationship to Insured Coverage Start Date Coverage End Date [facility] [employer] [address] [place] [address] [id number] Self - patient is the insured Medical (General) History Medical History History ICD Code Denies PR,DM,CVA,Lung disease,renal dise ase Surgical History Surgery Date(Month/Year) Blood clot removal (back of head) from [facility] 1980 6 sets of ear tubes Tonsillectomy 1987 Bladder suspension 2005
== END 2025-07-30 12:49 | disposition home or self-care (01) ==
LOC: HO.HMCC 11:46
PROVIDERS: PCP Internal Medicine; Visit Provider Internal Medicine
DX: Z00.00 Encounter for general adult medical examination without abnormal findings (principal)